=== PATIENT | female | born 1965 | race Hispanic/Latino ===

== ENCOUNTER 2018-04-19 19:17 | Emergency (ER) | payer OTHER ==
[~2018-04-19] VITALS: Ht 160 cm; Wt 89.8 kg
[~2018-04-19 19:17] MED LIST: DEMEROL 2525 MG/1 ML IV; LEVAQUIN500 MG PO; NEXIUM40 MG; PHENERGAN25 MG/1 ML IV; TYLENOL WITH C1 EACH PO
[2018-04-19] MEDS ORDERED: SODIUM CHLORIDE 0.9% 1000ML 1,000 ML IV STA (19:45)
[2018-04-19] MEDS ORDERED: PANTOPRAZOLE 40 MG 10ML VIAL IV STA (19:45)
[2018-04-19] MEDS ORDERED: KETOROLAC TROMETHAMINE 30 MG/ML VIAL IV STA (19:45)
[2018-04-19] MEDS ORDERED: ONDANSETRON HCL INJ 2 MG/ML VIAL IV STA ×2 (19:45→21:55)
[2018-04-19 20:09] LABS: BASOPHILS % 0.3 % (0.0-1.0); HEMATOCRIT 40.9 % (34.2-44.1); HEMOGLOBIN 13.8 g/dL (12.0-16.0); LYMPHOCYTES # (AUTO) 1.4 (1.0-3.2); LYMPHOCYTES % 11.8 % (18.0-39.1); MEAN CORPUSCULAR HEMOGLOBIN 30.6 pg (28-32); MEAN CORPUSCULAR HGB CONC 33.7 g/dL (31-35); MEAN CORPUSCULAR VOLUME 90.7 fL (81-99); MONOCYTES # (AUTO) 0.2 (0.2-0.8); MONOCYTES % 1.4 % (4.4-11.3); NEUTROPHILS # (AUTO) 10.1 (2.1-6.9); NEUTROPHILS % 85.2 % (38.7-80.0); PLATELET COUNT 381 x10e3/uL (140-360); RED BLOOD COUNT 4.51 x10e6/uL (3.6-5.1); RED CELL DISTRIBUTION WIDTH 14.2 % (11.7-14.4)
[2018-04-19 20:29] LABS: ALANINE AMINOTRANSFERASE 20 IU/L (0-55); ALBUMIN 3.9 g/dL (3.5-5.0); ALBUMIN/GLOBULIN RATIO 0.9 (0.8-2.0); ALKALINE PHOSPHATASE 72 IU/L (40-150); AMYLASE 38 U/L (25-125); ANION GAP 19.2 mmol/L (8-16); BLOOD UREA NITROGEN 16 mg/dL (7-26); BUN/CREATININE RATIO 19 (6-25); CALCIUM 9.8 mg/dL (8.4-10.2); CARBON DIOXIDE 18 mmol/L (22-29); CHLORIDE 107 mmol/L (98-107); CREATINE KINASE 65 IU/L (29-168); CREATININE, SERUM 0.84 mg/dL (0.57-1.11); EST GLOMERULAR FILTRATION RATE > 60 ML/MIN (60-); GLUCOSE 235 mg/dL (74-118); LIPASE 21 U/L (8-78); MAGNESIUM 2.1 MG/DL (1.3-2.1); POTASSIUM 4.2 mmol/L (3.5-5.1); SODIUM 140 mmol/L (136-145)
[2018-04-19 20:33] LABS: CLARITY,URINE CLEAR (CLEAR); COLOR,URINE YELLOW (YELLOW)
[2018-04-19 20:34] LABS: BILIRUBIN,URINE NEGATIVE (NEGATIVE); KETONES,URINE TRACE (NEGATIVE); LEUKOCYTE ESTERASE ,URINE NEGATIVE (NEGATIVE); NITRITE,URINE NEGATIVE (NEGATIVE); PROTEIN,URINE DIPSTICK NEGATIVE (NEGATIVE); URINE UROBILINOGEN 0.2 mg/dL (0.2 - 1)
[2018-04-19 20:36] LABS: MUCUS,URINE FEW (RARE)
[2018-04-19] MEDS ORDERED: MORPHINE SULFATE 2 MG/ML SYR IV STA (21:55)
[2018-04-19] MEDS ORDERED: CEFTRIAXONE SOD 1 GM VIAL IM ONE (22:00)
[2018-04-19] MEDS ORDERED: MORPHINE SULFATE INJ 4 MG/ML INJ ONE (22:15)
--- NOTE | 2018-04-19 22:41 | Diagnostic Imaging Report ---
EXAM: CT ABDOMEN/PELVIS WO DATE: 04/19/2018 7:45 PM INDICATION: Right upper quadrant/flank pain, stone protocol COMPARISON: 01/03/2017 TECHNIQUE: The abdomen and pelvis were scanned using a multidetector helical scanner. Coronal and sagittal reformations were obtained. Routine protocol performed. Note that technical tissues resulted in a delay in interpretation. IV Contrast: 0 ml Isovue 300/370 FINDINGS: Lack of IV contrast decreases sensitivity in evaluating abdominal and pelvic organs. LOWER THORAX: No consolidations LIVER/BILIARY: Stable subcentimeter low-density left hepatic lesion from 2016, likely benign/cyst. No ductal dilatation. GALLBLADDER: Surgically absent SPLEEN: Unremarkable PANCREAS: Unremarkable ADRENALS: No nodules KIDNEYS: Multiple bilateral renal cystic lesions are again noted, incompletely characterized without IV contrast. The largest of the left anterior kidney measures 2.7 cm with peripheral calcification/mineralization; calcification also seen of several additional renal lesions. A previous cystic lesion of the right interpolar kidney is now smaller (prior 1.6 cm) 1.3 cm high attenuation which may be related to involution/proteinaceous material. Left peripelvic cysts. No hydronephrosis. GI TRACT: No wall thickening or evidence of obstruction. Diverticulosis. Appendix is not seen. VESSELS: Incompletely assessed PERITONEUM/RETROPERITONEUM: No free air or fluid LYMPH NODES: No lymphadenopathy REPRODUCTIVE ORGANS/BLADDER: Hysterectomy. Unremarkable bladder. BONES: No suspicious bone lesions. IMPRESSION: 1. No evidence of obstructive uropathy or other explanation for symptoms. 2. Multiple bilateral renal cystic structures, several of which are complex and incompletely assessed without IV contrast. Signed by: Dr Lizeth Howard MD on 04/19/2018 10:37 PM
--- NOTE | 2018-04-19 22:43 | Diagnostic Imaging Report ---
CHEST 2 VIEWS, Technique: CHEST 2 VIEWS Comparison: 09/26/2016 Clinical history: \S\RUQ ABD PAIN TO FLANK CHEST (H/O CHOLECYSTECTOMY) \[id number] \S\2003 DISCUSSION: Stable cardiomediastinal silhouette. No consolidation or edema. No pleural effusion or pneumothorax. IMPRESSION: No acute abnormality Signed by: Dr Lizeth Howard MD on 04/19/2018 10:39 PM
== END 2018-04-19 23:27 | disposition home or self-care (01) ==
LOC: ER 19:17
DX: R10.11 Right upper quadrant pain (principal); R11.0 Nausea; N30.91 Cystitis, unspecified with hematuria
CPT/HCPCS: 36415; 71046; 74176; 80053; 81001; 82150; 82550; 82553; 83690; 83735; 84484; 85025; 87086; 93005; 99284; J0696; J1885; J2270; J2405; J7030

== ENCOUNTER → 2018-05-04 | Outpatient (CLI) | payer MEDICARE, OTHER ==
--- NOTE | 2018-05-04 11:34 | Diagnostic Imaging Report ---
PROCEDURE:US RETROPERITONEAL ( KIDNEY ). COMPARISON:Patients [facility], CT, CT ABDOMEN/PELVIS WO, 04/19/2018, 20:37. INDICATIONS:Renal Cyst TECHNIQUE: Wilder-scale and color sonographic images of the bilateral kidneys and bladder where obtained in transverse and longitudinal planes. FINDINGS: RIGHT KIDNEY: 12.6 cm, cortex 2.7 cm Cysts: Several cystic, anechoic lesions are noted: * 2.3 x 1.7 x 2.2 cm lesion in the mid lateral aspect. * 2.2 x 2.0 x 2.1 cm lesion in the superior to mid aspect. * 1.7 x 1.7 x 2.0 cm lesion in the superior to mid aspect Solid masses: None Stones: None Hydronephrosis: None Echogenicity: Normal LEFT KIDNEY: 12.2 cm, cortex 1.2 cm Cysts: Cystic, anechoic lesions within the left kidney: * 1.8 x 1.7 x 2.3 cm lesion in the superior, mid aspect. * 2.7 x 2.6 x 2.5 cm lesion in the mid medial aspect. Solid masses: None Stones: None Hydronephrosis: None. An irregular shaped cystic, anechoic structure in the mid left renal pelvis corresponds to the previously visualized left peripelvic cyst Echogenicity: Normal Bladder: No focal lesions. Bilateral ureteral jets are identified. CONCLUSION: 1. Normal bilateral renal size and echogenicity. No hydronephrosis or obstruction. No stones are identified. 2. Bilateral simple appearing cysts. Of note, a 1.3 cm hyperdense cyst noted on CT dated 04/19/2018 is not clearly seen in the current exam. 3. Left peripelvic cyst. Edward Brown M.D. Dictated by: Edward Brown M.D. on 05/04/2018 at 11:39 Electronically approved by: Edward Brown M.D. on 05/04/2018 at 11:39
== END ==
LOC: US 09:45
PROVIDERS: ATTEND Urology
DX: N28.1 Cyst of kidney, acquired (principal)
CPT/HCPCS: 76770

== ENCOUNTER 2018-09-19 13:32 | Emergency (ER) | payer MEDICARE, OTHER ==
[~2018-09-19] VITALS: Ht 162.6 cm; Wt 74.8 kg
--- OUTSIDE RECORDS SUMMARY | 2018-09-19 13:34 | XMS REPORT | Clinical Summary ---
Author Author [facility] Organization [facility] Address Unknown Phone Unavailable Care Team Providers Care Paper Folder Name Role Phone Kirit Connor DO PCP Allergies No Known Allergies Medications Not on file Active Problems Not on file Social History Date Tobacco Use Types Packs/Day Years Used Never Assessed Sex Assigned at Date Recorded Not on file Industry Job Start Date Occupation Not on file Not on file Not on file Travel End Travel History Travel Start No recent travel history available. Last Filed Vital Signs Not on file Plan of Treatment Health Maintenance Due Date Last Done Comments CERVICAL CANCER SCREENING 1986 BREAST CANCER SCREENING 2015 COLON CANCER SCREENING 2015 SHINGRIX VACCINE (1 of 2) 2015 INFLUENZA VACCINE 05/10/2018 HEPATITIS B VACCINES Aged Out No longer eligible based on patient's age to complete this topic IPV VACCINES Aged Out No longer eligible based on patient's age to complete this topic MENINGOCOCCAL VACCINE Aged Out No longer eligible based on patient's age to complete this topic Results Not on fileafter 09/18/2017 Insurance Payer Benefit Subscriber ID Type Phone Address Plan / Group [facility] x[facility] HMO COMPLETE [facility] (Home) [place] [address] Advance Directives Patient has advance care planning documents on file. For more information, nicole gaviria contact: Del Schwartz [address] [place] [address]
--- OUTSIDE RECORDS SUMMARY | 2018-09-19 13:34 | XMS REPORT ---
Author [facility] Address Unknown Phone Unavailable Care Team Providers Care Switch House Operator Name Role Phone ZOHAIB SCOTT Unavailable Unavailable SWEET, Rosalio LAIRD Unavailable Unavailable BAUTISTALM Unavailable Unavailable Problems This patient has no known problems. Allergies, Adverse Reactions, Alerts This patient has no known allergies or adverse reactions. Medications This patient has no known medications. Results Test Description Test Time Test Comments Text Results Atomic Results Result Comments US RENAL RETROPERITONEAL COMP 2018-05-04 11:39:00 [place] [address] Patient Name: HERNANDEZ VIERA I MR #: [id number] : 1965 Age/Sex: 52/F Req #: [id number] Adm Physician: Ordered by: ZOHAIB SCOTT MD Report #: [id number] Location: Room/Bed: Procedure: [id number] US/US RENAL RETROPERITONEAL COMP Exam Date: 05/04/18 Exam Time: 1004 REPORT STATUS: Signed PROCEDURE: US RETROPERITONEAL ( KIDNEY ). COMPARISON: Patients [facility], CT, CT ABDOMEN/PELVIS WO, 04/19/2018, 20:37. INDICATIONS: Renal Cyst TECHNIQUE: Wilder-scale and color sonographic images of the bilateral kidneys and bladder where obtained in transverse and longitudinal planes. FINDINGS: RIGHT KIDNEY: 12.6 cm, cortex 2.7 cm Cysts: Several cystic, anechoic lesions are noted: * 2.3 x 1.7 x 2.2 cm lesion in the mid lateral aspect. * 2.2 x 2.0 x 2.1 cm lesion in the superior to mid aspect. * 1.7 x 1.7 x 2.0 cm lesion in the superior to mid aspect Solid masses: None Stones: None Hydronephrosis: None Echogenicity: Normal LEFT KIDNEY: 12.2 cm, cortex 1.2 cm Cysts: Cystic, anechoic lesions within the left kidney: * 1.8 x 1.7 x 2.3 cm lesion in the superior, mid aspect. * 2.7 x 2.6 x 2.5 cm lesion in the mid medial aspect. Solid masses: None Stones: None Hydronephrosis: None. An irregular shaped cystic, anechoic structure in the mid left renal pelvis corresponds to the previously visualized left peripelvic cyst Echogenicity: Normal Bladder: No focal lesions. Bilateral ureteral jets are identified. CONCLUSION: 1. Normal bilateral renal size and echogenicity. No hydronephrosis or obstruction. No stones are identified. 2. Bilateral simple appearing cysts. Of note, a 1.3 cm hyperdense cyst noted on CT dated 04/19/2018 is not clearly seen in the current exam. 3. Left peripelvic cyst. Lorraine Brown M.D. Dictated by: Lorraine Brown M.D. on 05/04/2018 at 11:39 Electronically approved by: Lorraine Brown M.D. on 05/04/2018 at 11:39 Dictated By: LORRAINE BROWN MD 1139 Transcribed By: JANY on 05/04/18 1139 COPY TO: ZOHAIB SCOTT MD CHEST 2 VIEWS 2018-04-19 22:38:00 [place] [address] Patient Name: HERNANDEZ VIERA MR #: [id number] : 1965 Age/Sex: 52/F Req #: [id number] Adm Physician: Ordered by: BRADY GREEN MD Report #: [id number] Location: ER Room/Bed: Procedure: [id number] DX/CHEST 2 VIEWS Exam Date: 04/19/18 Exam Time: 2003 REPORT STATUS: Signed CHEST 2 VIEWS, Technique: CHEST 2 VIEWS Comparison: 09/26/2016 Clinical history: S RUQ ABD PAIN TO FLANK CHEST (H/O CHOLECYSTECTOMY) DISCUSSION: Stable cardiomediastinal silhouette. No consolidation or edema. No pleural effusion or pneumothorax. IMPRESSION: No acute abnormality Signed by: Dr Angela Howard MD on 04/19/2018 10:39 PM Dictated By: ANGELA HOWARD MD 38 Transcribed By: WILMAN on 04/19/182238 COPY TO: BRADY GREEN MD CT ABDOMEN/PELVIS WO 2018-04-19 22:26:00 [place] [address] Patient Name: HERNANDEZ VIERA MR #: [id number] : 1965 Age/Sex: 52/F Req #: [id number] Adm Physician: Ordered by: BRADY GREEN MD Report #: [id number] Location: ER Room/Bed: Procedure: [id number] CT/CT ABDOMEN/PELVIS WO Exam Date: 04/19/18 Exam Time: 2036 REPORT STATUS: Signed EXAM: CT ABDOMEN/PELVIS WO DATE: 04/19/2018 7:45 PM INDICATION: Right upper quadrant/flank pain, stone protocol COMPARISON: 01/03/2017 TECHNIQUE: The abdomen and pelvis were scanned using a multidetector helical scanner. Coronal and sagittal reformations were obtained. Routine protocol performed. Note that technical tissues resulted in a delay in interpretation. IV Contrast: 0 ml Isovue 300/370 FINDINGS: Lack of IV contrast decreases sensitivity in evaluating abdominal and pelvic organs. LOWER THORAX: No consolidations LIVER/BILIARY: Stable subcentimeter low-density left hepatic lesion from 2016, likely benign/cyst. No ductal dilatation. GALLBLADDER: Surgically absent SPLEEN: Unremarkable PANCREAS: Unremarkable ADRENALS: No nodules KIDNEYS: Multiple bilateral renal cystic lesions are again noted, incompletely characterized without IV contrast. The largest of the left anterior kidney measures 2.7 cm with peripheral calcification/mineralization; calcification also seen of several additional renal lesions. A previous cystic lesion of the right interpolar kidney is now smaller (prior 1.6 cm) 1.3 cm high attenuation which may be related to involution/proteinaceous material. Left peripelvic cysts. No hydronephrosis. GI TRACT: No wall thickening or evidence of obstruction. Diverticulosis. Appendix is not seen. VESSELS: Incompletely assessed PERITONE UM/RETROPERITONEUM: No free air or fluid LYMPH NODES: No lymphadenopathy REPRODUCTIVE ORGANS/BLADDER: Hysterectomy. Unremarkable bladder. BONES: No suspicious bone lesions. IMPRESSION: 1. No evidence of obstructive uropathy or other explanation for symptoms. 2. Multiple bilateral renal cystic structures, several of which are complex and incompletely assessed without IV contrast. Signed by: Dr Angela Howard MD on 04/19/2018 10:37 PM Dictated By: ANGELA HOWARD MD 36 Transcribed By: WILMAN on 04/19/182236 COPY TO: BRADY GREEN MD Culture, Blood Routine 2017-02-17 15:40:00 Specimen: BloodCollected: 02/12/2017 13:13 Status: Final Last Updated: 02/17/2017 15:40 (1) ER Bed 4 Culture Result (Final) (Final) No Growth After 5 Days Culture, Blood Routine 2017-02-17 15:40:00 Specimen: BloodCollected: 02/12/2017 13:13 Status: Final Last Updated: 02/17/2017 15:40 (1) ER Bed 4 Culture Result (Final) (Final) No Growth After 5 Days Culture, Urine 2017-02-14 08:19:00 Specimen: Urine, CC-MidstreamCollected: 02/12/2017 12:30 Status: Final Last Updated: 02/14/2017 08:19 (1) ER Bed 4 Culture Result (Final) (Final) 02/13/2017 No growth 24 hours 02/14/17 No growth 48 hours Lactic Acid Bld 2017-02-12 13:39:00 Lactic Acid, Bld (test code=LAC) 0.9 mmol/L 0.5-1.9 Comprehensive Metabolic [id number] 13:39:00* Test Item Value Reference Range Comments Sodium (test code=NA) 138 mmol/L 135-145 Potassium (test code=K) 3.6 mmol/L 3.5-5.1 Chloride (test code=CL) 100 mmol/L 98-105 Carbon Dioxide (test code=CO2) 26 mmol/L 22-29 Glucose (test code=GLU) 79 mg/dL 70-115 Blood Urea Nitrogen (test code=BUN) 10 mg/dL 6-20 Creatinine (test code=CREAT) 0.7 mg/dL 0.5-0.9 Calcium (test code=CA) 9.2 mg/dL 8.3-10.5 Prot Total (test code=TP) 7.1 g/dL 6.4-8.3 Albumin (test code=ALB) 4.4 g/dL 3.5-5.2 A/G Ratio (test code=AGRATIO) 1.6 Ratio Globulin (test code=GLOB) 2.7 2.9-3.1 Bili Total (test code=TBIL) 0.4 mg/dL 0.1-0.9 Alk Phos (test code=APHOS) 85 U/L 35-104 AST (test code=AST) 16 U/L 1-32 ALT (test code=ALT) 16 U/L 1-33 BUN/Creatinine Ratio (test code=BCRATIO) 14.3 Anion Gap (test code=AGAP) 12 mmol/L 7-16 Estimated GFR (test code=GFR) >60 mL/min/1.73m2 eGFR (estimated Glomerular Filtration Rate) is an estimated value,calculated from the patient's serum creatinine using the MDRD equation.It is NOT the patient's actual GFR. The eGFR provides a more clinicallyuseful measure of kidney disease than serum creatinine alone.This calculation takes sex and race into account, if the informationis provided. If the race is not provided, and the patient isAfrican-Nigerian, multiply by 1.212. If sex is not provided, and thepatient is female, multiply by 0.742. Results for patients <18 years ofage have not been validated by the MDRD study and should be interpretedwith caution.eGFR Result Interpretation:eGFR > or=60 is in the Normal RangeeGFR < 60 may mean kidney diseaseeGFR < 15 may mean kidney failureRanges recommended by the National Kidney Foundat ion,http://nkdep.nih.gov Partial Thromboplastin [id number] 13:25:00* Test Item Value Reference Range Comments aPTT (test code=PTT) 43.70 seconds 24.39-37.25 Prothrombin [id number] 13:25:00* Test Item Value Reference Range Comments PT (test code=PT) 12.10 seconds 9.78-13.35 INR (test code=INR) 1.06 Ratio 0.6-1.2 Urinalysis [id number] 13:15:00* Test Item Value Reference Range Comments Color (test code=COLOR) Yellow Yellow,Straw,Pl yellow Clarity (test code=CLAR) Clear Clear Specific [place] (test code=SPGR) 1.007 1.001-1.035 pH (test code=PH) 5.0 5.0-9.0 Ketone (test code=KET) Negative mg/dL Negative Glucose (test code=GLUCUR) Negative mg/dL Negative Protein (test code=PROT) Negative mg/dL Negative Bilirubin (test code=BILI) Negative mg/dL Negative Occult Blood (test code=UDOB) Moderate Negative Urobilinogen (test code=UROB) 0.2 mg/dL 0.2-1.0 Nitrite (test code=NIT) Negative Negative Leuk Esterase (test code=LEUK) Small Negative Ictotest (test code=ICTOTEST) Negative Negative,Confirmed Negative Clinitest (test code=CLINITEST) Not Indicated Micros Exam (test code=MEXAM) Indicated Epithelial Cells (test code=EPI) 0-2 /LPF 0-30 WBC, Urine (test code=UWBC) 0-2 /HPF 0-5 RBC, Urine (test code=URBC) 0-2 /HPF 0-5 Amorph Deposit (test code=AMORD) None /HPF Mucous, Urine (test code=UMUC) Trace /HPF Bacteria (test code=BACT) Few /HPF Yeast (test code=YEAST) None Seen /HPF Trichomonas (test code=TRICH) None Seen /HPF Casts (test code=CASTS) None /HPF Crystals (test code=JOSÉ MIGUEL) None /HPF CBC with [id number] 13:04:00* Test Item Value Reference Range Comments WBC (test code=WBC) 8.8 K/cumm 4.4-10.5 RBC (test code=RBC) 4.74 M/cumm 3.75-5.20 Hemoglobin (test code=HGB) 13.9 gm/dL 12.2-14.8 Hematocrit (test code=HCT) 42.3 % 36.5-44.4 MCV (test code=MCV) 89.2 fL 80-100 MCH (test code=MCH) 29.3 pg 27.0-32.5 MCHC (test code=MCHC) 32.9 g/dL 32.0-37.5 RDW (test code=RDW) 14.7 % 11.5-14.5 Platelet Count (test code=PLTCT) 375 K/cumm 140-440 MPV (test code=MPV) 7.7 fL Diff Method (test code=DIFFM) Auto Neutrophil (test code=NEUT) 51.0 % 36-70 Lymphocyte (test code=LYMPH) 37.2 % 12-44 Monocyte (test code=MONO) 8.5 % 0-11 Eosinophil (test code=EOS) 2.9 % 0-7 Basophil (test code=BASO) 0.4 % 0-2 Neutro Abs (test code=ANEUT) 4.5 K/cumm 1.6-7.4 Lymph Abs (test code=ALYMPH) 3.3 K/cumm 0.5-4.6 Bartholomew Abs (test code=AMONO) 0.7 K/cumm 0.0-1.2 Eos Abs (test code=AEOS) 0.25 K/cumm 0.00-0.74 Baso Abs (test code=ABASO) 0.0 K/cumm 0.00-0.21
[2018-09-19] MEDS ORDERED: HYDROCODONE/APAP 7.5MG-325MG 1 EA TAB PO NR ×2 (14:15→18:07)
[2018-09-19] MEDS ORDERED: KETOROLAC TROMETHAMINE 30 MG/ML VIAL IV ONE (14:45)
[2018-09-19] MEDS ORDERED: DICYCLOMINE HCL 20 MG/2 ML VIAL IM ONE ×2 (15:00→18:45)
--- NOTE | 2018-09-19 15:24 | Diagnostic Imaging Report ---
EXAMINATION: CT of the abdomen and pelvis without contrast. TECHNIQUE: Spiral CT images of the abdomen and pelvis were performed from the lung bases to the lesser trochanters. No intravenous contrast was given per renal stone protocol. Coronal and sagittal reformatted images were obtained. COMPARISON: CT abdomen and pelvis without contrast 04/19/2018 CLINICAL HISTORY:Right flank pain and hematuria DISCUSSION: ABSENCE OF INTRAVENOUS CONTRAST DECREASES SENSITIVITY FOR DETECTION OF FOCAL LESIONS AND VASCULAR PATHOLOGY. ABDOMEN/PELVIS: LOWER THORAX: Lung bases are clear. HEPATOBILIARY: No focal hepatic lesions. No intra or extrahepatic biliary ductal dilation. GALLBLADDER: Cholecystectomy clips. SPLEEN: No splenomegaly. PANCREAS: No focal masses or ductal dilatation. ADRENALS: No adrenal nodules. KIDNEYS/URETERS: Right: No renal or ureteral calculi. No hydronephrosis, hydroureter or evidence of obstruction. Stable hypodense/fluid density lesions, some of which contain punctate peripheral calcification, and which are incompletely characterized in this noncontrast study. Stable 1.2 cm high attenuation lesion in the lateral interpolar region, likely reflecting hemorrhagic or proteinaceous contents. No significant perinephric stranding. Left: No renal or ureteral calculi, hydronephrosis or obstruction. Stable fluid density structures in the left renal pelvis, likely reflecting peripelvic cysts. Stable fluid density lesions, likely representing simple cysts, which are incompletely characterized in this noncontrast study. No significant perinephric stranding. PELVIC ORGANS/BLADDER: Bladder is unremarkable. Uterus is absent. No adnexal masses. PERITONEUM/RETROPERITONEUM: No free air or fluid. LYMPH NODES: No intra-abdominal,retroperitoneal, pelvic or inguinal lymphadenopathy. VESSELS: Unremarkable for noncontrast exam. GI TRACT: No bowel dilation or evidence of obstruction. Extensive colonic diverticulosis, without CT evidence of diverticulitis. BONES AND SOFT TISSUES: No aggressive lytic lesions. Mild degenerative disc changes in the lumbosacral spine. IMPRESSION: 1. No renal or ureteral calculi, hydronephrosis or obstruction. 2. Stable noncontrast appearance of bilateral cystic lesions, some of which contain peripheral calcification, and are incompletely assessed in this exam without IV contrast. Signed by: Dr. Edward Brown M.D. on 09/19/2018 3:20 PM
[2018-09-19 18:09] LABS: BILIRUBIN,URINE NEGATIVE (NEGATIVE); CLARITY,URINE CLEAR (CLEAR); COLOR,URINE YELLOW (YELLOW); KETONES,URINE NEGATIVE (NEGATIVE); LEUKOCYTE ESTERASE ,URINE NEGATIVE (NEGATIVE); NITRITE,URINE NEGATIVE (NEGATIVE); PROTEIN,URINE DIPSTICK NEGATIVE (NEGATIVE); URINE UROBILINOGEN 0.2 mg/dL (0.2 - 1)
[2018-09-19 18:33] LABS: EPITHELIAL CELLS,URINE FEW /LPF
[2018-09-19 18:34] LABS: BACTERIA,URINE FEW /HPF
[2018-09-19 18:36] LABS: BASOPHILS # (AUTO) 0.1 (0.0-0.1); BASOPHILS % 0.5 % (0.0-1.0); HEMATOCRIT 42.7 % (34.2-44.1); HEMOGLOBIN 14.3 g/dL (12.0-16.0); LYMPHOCYTES # (AUTO) 0.8 (1.0-3.2); LYMPHOCYTES % 7.5 % (18.0-39.1); MEAN CORPUSCULAR HEMOGLOBIN 31.5 pg (28-32); MEAN CORPUSCULAR HGB CONC 33.5 g/dL (31-35); MEAN CORPUSCULAR VOLUME 94.1 fL (81-99); MONOCYTES # (AUTO) 0.3 (0.2-0.8); MONOCYTES % 2.5 % (4.4-11.3); NEUTROPHILS # (AUTO) 9.3 (2.1-6.9); NEUTROPHILS % 88.4 % (38.7-80.0); PLATELET COUNT 328 x10e3/uL (140-360); RED BLOOD COUNT 4.54 x10e6/uL (3.6-5.1); RED CELL DISTRIBUTION WIDTH 15.3 % (11.7-14.4)
[2018-09-19] MEDS ORDERED: KETOROLAC TROMETHAMINE 60 MG/2 ML VIAL IM ONE (18:45)
[2018-09-19 18:51] LABS: ALANINE AMINOTRANSFERASE 19 IU/L (0-55); ALBUMIN 3.9 g/dL (3.5-5.0); ALBUMIN/GLOBULIN RATIO 1.2 (0.8-2.0); ALKALINE PHOSPHATASE 41 IU/L (40-150); ANION GAP 17.5 mmol/L (8-16); BLOOD UREA NITROGEN 19 mg/dL (7-26); BUN/CREATININE RATIO 27 (6-25); CALCIUM 9.7 mg/dL (8.4-10.2); CARBON DIOXIDE 21 mmol/L (22-29); CHLORIDE 103 mmol/L (98-107); CREATININE, SERUM 0.71 mg/dL (0.57-1.11); EST GLOMERULAR FILTRATION RATE > 60 ML/MIN (60-); GLUCOSE 107 mg/dL (74-118); POTASSIUM 3.5 mmol/L (3.5-5.1); SODIUM 138 mmol/L (136-145)
== END 2018-09-19 21:12 | disposition home or self-care (01) ==
LOC: ER 13:32
DX: R10.31 Right lower quadrant pain (principal); R11.0 Nausea; M54.5 Low back pain; M79.7 Fibromyalgia; G89.29 Other chronic pain; I10 Essential (primary) hypertension
CPT/HCPCS: 36415; 74176; 80053; 81001; 82948; 83690; 85025; 96372; 99283; J0500; J1885

== ENCOUNTER 2018-09-21 12:03 | Emergency (ER) | payer MEDICARE, OTHER ==
[~2018-09-21] VITALS: Ht 162.6 cm; Wt 74.8 kg
--- OUTSIDE RECORDS SUMMARY | 2018-09-21 12:06 | XMS REPORT | Clinical Summary ---
Author Author [facility] Organization [facility] Address Unknown Phone Unavailable Care Team Providers Care Personal Lines Appraiser Name Role Phone Kirit Connor DO PCP [...] CANCER SCREENING 2015 COLON CANCER SCREENING 2015 SHINGLES VACCINES ( of 2015 2) INFLUENZA VACCINE 05/10/2018 HEPATITIS B VACCINES Aged Out No longer eligible based on patient's age to complete this topic IPV VACCINES Aged Out No longer eligible based on patient's age to complete this topic MENINGOCOCCAL VACCINE Aged Out No longer eligible based on patient's age to complete this topic Results Not on fileafter 09/20/2017 Insurance Payer Benefit Subscriber ID Type Phone Address Plan / Group [employer] MEDICARE [employer] DUAL xxxxxxxxx HMO COMPLETE [facility] (Home) [place] [address] Advance Directives Patient has advance care planning documents on file. For more information, nicole gaviria contact: Del Schwartz [address] [place] [address]
[2018-09-21 13:18] LABS: BILIRUBIN,URINE NEGATIVE (NEGATIVE); CLARITY,URINE SL CLOUDY (CLEAR); COLOR,URINE YELLOW (YELLOW); KETONES,URINE NEGATIVE (NEGATIVE); LEUKOCYTE ESTERASE ,URINE TRACE (NEGATIVE); NITRITE,URINE NEGATIVE (NEGATIVE); PROTEIN,URINE DIPSTICK NEGATIVE (NEGATIVE); URINE UROBILINOGEN 0.2 mg/dL (0.2 - 1)
[2018-09-21 13:19] LABS: PREGNANCY TEST, URINE NEGATIVE (NEGATIVE)
[2018-09-21 13:29] LABS: EPITHELIAL CELLS,URINE FEW /LPF; RENAL EPITHELIAL CELLS,URINE FEW; WBC,URINE (MAN) 0-5 /HPF (0-5)
[2018-09-21] MEDS ORDERED: ONDANSETRON HCL INJ 2 MG/ML VIAL IV STA (14:59)
[2018-09-21] MEDS ORDERED: MORPHINE SULFATE INJ 4 MG/ML INJ IV ONE (15:00)
[2018-09-21] MEDS ORDERED: SODIUM CHLORIDE 0.9% 1000ML 1,000 ML IV SCH (15:15)
[2018-09-21 15:25] LABS: BASOPHILS # (AUTO) 0.1 (0.0-0.1); BASOPHILS % 0.5 % (0.0-1.0); EOSINOPHILS # (AUTO) 0.1 (0.0-0.4); EOSINOPHILS % 0.6 % (0.0-6.0); HEMATOCRIT 44.5 % (34.2-44.1); HEMOGLOBIN 14.9 g/dL (12.0-16.0); LYMPHOCYTES # (AUTO) 3.2 (1.0-3.2); LYMPHOCYTES % 28.4 % (18.0-39.1); MEAN CORPUSCULAR HEMOGLOBIN 31.6 pg (28-32); MEAN CORPUSCULAR HGB CONC 33.5 g/dL (31-35); MEAN CORPUSCULAR VOLUME 94.5 fL (81-99); MONOCYTES # (AUTO) 0.9 (0.2-0.8); MONOCYTES % 8.1 % (4.4-11.3); NEUTROPHILS # (AUTO) 6.9 (2.1-6.9); NEUTROPHILS % 61.2 % (38.7-80.0); PLATELET COUNT 321 x10e3/uL (140-360); RED BLOOD COUNT 4.71 x10e6/uL (3.6-5.1); RED CELL DISTRIBUTION WIDTH 15.3 % (11.7-14.4)
[2018-09-21] MEDS ORDERED: KETOROLAC TROMETHAMINE 30 MG/ML VIAL IV ONE (15:30)
--- NOTE | 2018-09-21 15:45 | Diagnostic Imaging Report ---
Examination: Upright chest and abdominal radiographs COMPARISON: CT abdomen and pelvis without contrast 09/19/2018 INDICATION: Abdominal pain, CT abdomen and pelvis 2 days ago with negative findings DISCUSSION: Chest: The lungs are well-inflated and without focal consolidation, pleural effusion, or pneumothorax. Cardiomediastinal contour and pulmonary vasculature are within normal limits. No acute osseous abnormalities. Degenerative changes of the thoracic spine. No free air under the diaphragm. Abdomen: The bowel gas pattern shows no dilated, air-filled loops of bowel. Gas and fecal material is noted throughout the large bowel and rectum. No air-fluid levels on the upright radiograph. Calcified renal cystic lesions are faintly visualized. No abnormal abdominal mass effect or organomegaly. Regional skeletal structures are intact. Surgical clips project over the right upper quadrant of the abdomen, compatible with prior cholecystectomy IMPRESSION: 1. No acute cardiopulmonary abnormalities. 2. Nonobstructive bowel gas pattern. No pneumoperitoneum. Signed by: Dr. Dashawn Vitale M.D. on 09/21/2018 3:42 PM
[2018-09-21 15:58] LABS: ALANINE AMINOTRANSFERASE 18 IU/L (0-55); ALBUMIN 3.7 g/dL (3.5-5.0); ALBUMIN/GLOBULIN RATIO 1.2 (0.8-2.0); ALKALINE PHOSPHATASE 39 IU/L (40-150); BLOOD UREA NITROGEN 15 mg/dL (7-26); BUN/CREATININE RATIO 20 (6-25); CALCIUM 9.5 mg/dL (8.4-10.2); CARBON DIOXIDE 26 mmol/L (22-29); CHLORIDE 100 mmol/L (98-107); CREATININE, SERUM 0.74 mg/dL (0.57-1.11); EST GLOMERULAR FILTRATION RATE > 60 ML/MIN (60-); GLUCOSE 84 mg/dL (74-118); SODIUM 139 mmol/L (136-145)
[2018-09-21] MEDS ORDERED: DIPHENHYDRAMINE HCL INJ 50 MG/ML VIAL IV ONE (16:00)
[2018-09-21 18:55] VITALS: BP 133/87
== END 2018-09-21 18:54 | disposition home or self-care (01) ==
LOC: ER 12:03
DX: R10.11 Right upper quadrant pain (principal); M54.5 Low back pain; R11.0 Nausea; I10 Essential (primary) hypertension; E11.9 Type 2 diabetes mellitus without complications; E78.5 Hyperlipidemia, unspecified; M79.7 Fibromyalgia; K76.9 Liver disease, unspecified
CPT/HCPCS: 36415; 74022; 80053; 81001; 81025; 85025; 99284; J1200; J1885; J2270; J2405; J7030

== ENCOUNTER 2019-01-14 17:49 | Observation (INO) | payer MEDICARE, OTHER ==
[~2019-01-14] VITALS: Ht 162.6 cm; Wt 73.5 kg
--- OUTSIDE RECORDS SUMMARY | 2019-01-14 17:52 | XMS REPORT | Clinical Summary ---
Author Author [facility] Organization [facility] Address Unknown Phone Unavailable Care Team Providers Care Infantry Officer Name Role Phone Kirit Connor DO PCP [...] 2015 COLON CANCER SCREENING 2015 SHINGLES VACCINES (#1) 2015 INFLUENZA VACCINE 05/10/2019 Results Not on fileafter 01/13/2018 Insurance Payer Benefit Subscriber ID Type Phone Address Plan / Group [facility] MEDICARE [facility] DUAL xxxxxxxxx HMO COMPLETE [facility] (Home) [place] [address] Advance Directives Patient has advance care planning documents on file. For more information, nicole gaviria contact: Del Schwartz [address] [place] [address]
[2019-01-14] MEDS ORDERED: FENTANYL CITRATE/PF 100MCG/2 ML INJ IV ONE (18:30)
[2019-01-14] MEDS ORDERED: ASPIRIN 81 MG CHEW TAB PO ONE ×2 (18:30→21:15)
--- NOTE | 2019-01-14 20:20 | Diagnostic Imaging Report ---
EXAMINATION: CT scan of the chest without contrast. TECHNIQUE: Helical CT images of the chest were performed from the lung apices to the level of the adrenal glands. No intravenous contrast was administered . Coronal and sagittal reformatted images were obtained.Dose modulation, iterative reconstruction, and/or weight based adjustment of the mA/kV was utilized to reduce the radiation dose to as low as reasonably achievable. COMPARISON: None. CLINICAL HISTORY:Left arm pain DISCUSSION: ABSENCE OF INTRAVENOUS CONTRAST DECREASES SENSITIVITY FOR DETECTION OF FOCAL LESIONS AND VASCULAR PATHOLOGY. LINES/TUBES: None. LUNGS AND AIRWAYS: The lungs are clear. No pulmonary nodules, masses or consolidation. The airways are normal, without endobronchial lesions. PLEURA: No pneumothorax or pleural effusions. HEART AND MEDIASTINUM: The thyroid gland is normal. The heart and pericardium are within normal limits. LYMPH NODES: There is no mediastinal, hilar or axillary lymphadenopathy. ABDOMEN: Limited contrast-enhanced views of the upper abdomen show no abnormality within the visualized liver, spleen, pancreas, or kidneys. The adrenal glands are normal. BONES AND SOFT TISSUES: Partially visualized renal cysts. Cholecystectomy. Calcific tendinosis of the rotator cuffs. IMPRESSION: No acute CT finding. Signed by: Dr. López Higuera M.D. on 01/14/2019 8:16 PM
[2019-01-14] MEDS ORDERED: POTASSIUM CHLORIDE 20 MEQ TAB CR PO STA (20:30)
[2019-01-14] MEDS ORDERED: DEXAMETHASONE SOD PHOS 10 MG/1 ML VIAL IV ONE (20:45)
--- OUTSIDE RECORDS SUMMARY | 2019-01-14 21:34 | XMS REPORT | Clinical Summary ---
Author Author [facility] Organization [facility] Address Unknown Phone Unavailable Care Team Providers Care Salt Operator Name Role Phone Kirit Connor DO PCP [...] ID Type Phone Address Plan / Group [facility] MEDICARE [facility] DUAL xxxxxxxxx HMO COMPLETE [facility] (Home) [place] [address] Advance Directives Patient has advance care planning documents on file. For more information, nicole gaviria contact: Del Schwartz [address] [place] [address]
[2019-01-14 22:08] VITALS: BP 124/68
--- NOTE | 2019-01-14 22:10 | NUR ---
Arrived to unit via EMS. Assisted to bed. Oriented to environment and instructed to call for assistance or on the onset of pain or SOB. Call light within reach. Will continue to monitor.
[2019-01-14] MEDS ORDERED: HYDRALAZINE HCL 20 MG/ML VIAL IV PRN (22:15)
[2019-01-14] MEDS: HYDROCODONE/APAP 5MG-325MG TAB PO PRN (22:46)
[2019-01-14 23:00] VITALS: BP 124/68
[2019-01-14] MEDS ORDERED: MAGNESIUM OXID400 MG PO (23:18)
[2019-01-14] MEDS ORDERED: PRENATAL DHA200 MG PEG (23:18)
[2019-01-14] MEDS ORDERED: PREDNISONE10 MG PO (23:18)
[2019-01-14] MEDS ORDERED: TURMERIC1 GM PO (23:18)
[2019-01-14] MEDS ORDERED: SINGULAIR10 MG PO (23:18)
[2019-01-14] MEDS ORDERED: TRULICITY IJ (23:18)
[2019-01-14] MEDS ORDERED: POTASSIUM CHLO10 ME1 PO (23:18)
[2019-01-14] MEDS ORDERED: LEFLUNOMIDE20 MG (23:18)
[2019-01-14] MEDS ORDERED: FLAX SEED OIL1000 MG PO (23:18)
[2019-01-14] MEDS ORDERED: PRAVASTATIN SOD10 MG PO (23:18)
[2019-01-14] MEDS ORDERED: METFORMIN HCL500 M1 PO (23:18)
[2019-01-14] MEDS ORDERED: BIOTIN2500 MCG PO (23:18)
[2019-01-14] MEDS ORDERED: HYDROCHLOROTH12.5 M1 PO (23:18)
[2019-01-14] MEDS ORDERED: VITAMIN D1000 UNI1 PO (23:18)
[2019-01-15] VITALS: BP 117/74
--- NOTE | 2019-01-15 03:30 | NUR ---
Multiple attempt to draw trop lab this am, via IV and venous puncture. Another nurse to attempt.
[2019-01-15 04:00] VITALS: BP 119/71
[2019-01-15] MEDS: HYDROCODONE/APAP 5MG-325MG TAB PO PRN ×2 (05:15→10:50)
--- NOTE | 2019-01-15 06:11 | NUR ---
Spoke with Dr Márquez to notify of consult for Dr Mistry for chest pain and relapsing polychondritis. Will see patient
[2019-01-15 07:38] LABS: CHOL/HDL RATIO 2.4 (3.0-3.6)
[2019-01-15 07:45] VITALS: BP 117/82
[2019-01-15 07:55] LABS: CREATINE KINASE MB 0.4 ng/mL (0-5.0)
[2019-01-15] MEDS: ASPIRIN 81 MG ENTERIC COATED PO SCH (08:57)
[2019-01-15] MEDS: PREDNISONE 10 MG TAB PO SCH (10:30)
[2019-01-15] MEDS ORDERED: DEXTROSE 50% SYRINGE 50 ML IV PRN (10:30)
[2019-01-15 11:14] VITALS: BP 128/87
--- NOTE | 2019-01-15 12:40 | History and Physical ---
CHIEF COMPLAINT: Chest pain. HISTORY OF PRESENT ILLNESS: This is a 53-year-old female with multiple medical issues, of note relapsing polychondritis in which she takes and prednisone, seasonal allergies, hypertension, who comes in from an outside ED with complaints of substernal chest pain that began yesterday. 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 She reports the chest pain was substernal, pressure-like, that was episodic throughout the day yesterday. Denies any pain. She states that the chest pain did not radiate to her left shoulder or arm, just stayed center and pressure. She has never experienced anything like this before in the past. The patient was seen and evaluated at bedside on the medical floor. She is currently doing well. She is stable. Vital signs are stable when I evaluated her. REVIEW OF SYSTEMS: Pertinent positive: Chest pressure. Pertinent negatives: Denies any palpitation, nausea, vomiting, diarrhea, dysuria, hematuria, frequency, urgency, lightheadedness, dizziness, abdominal pain, headaches, shortness of breath, cough, congestion, fever, or any other complaints. The rest of 14-point review of systems have been reviewed with the patient and are negative. ALLERGIES: PENICILLIN BOVINE, CIPRO, CODEINE, HYDROCORTISONE, IODINE, SHELLFISH, VANCOMYCIN PAST MEDICAL HISTORY: She has relapsing polychondritis, hypertension, hyperlipidemia, seasonal allergies. PAST SURGICAL HISTORY: None. FAMILY HISTORY: Negative. SOCIAL HISTORY: No drugs. No alcohol. Does not smoke. Good social support. PHYSICAL EXAMINATION: VITAL SIGNS: Temperature is 97.0, pulse 68, respiratory rate is 19, blood pressure is 117/82, and pulse ox is 94% on room air. GENERAL: Not in acute distress. Alert and oriented x3. Cooperative on examination. HEENT: Head is normocephalic and atraumatic. Eyes; pupils are equal, round, and reactive to light bilaterally. Extraocular movements are intact bilaterally. Throat, no evidence of erythema or exudates in the posterior pharynx. Has poor dentition. NECK: Supple. Good range of motion. PULMONARY: Clear to auscultation bilaterally. No wheezing, no rales, no rhonchi, no crackles appreciated. CARDIOVASCULAR: Positive S1, S2. No murmurs, rubs, or gallops appreciated. ABDOMEN: Soft, nondistended, and nontender to palpation. Bowel sounds present. MUSCULOSKELETAL: Strength is 5/5 throughout. No evidence of any muscle deficits on examination. No weakness appreciated. NEUROLOGICAL: Cranial nerves 2 through 12 grossly intact. No evidence of any neurological deficits on exam. SKIN: Intact. Warm to touch. Good cap refill. PSYCHIATRIC: Normal affect and mood. EXTREMITIES: No edema. Good range of motion throughout. LABORATORY DATA: Lab findings show CBC was normal, chemistry was normal. CK 37, troponin 0.005. Triglycerides 58, cholesterol 194, LDL 101, and HDL 81. MICROBIOLOGY: None. IMAGING STUDIES: CT of the chest without contrast was performed, shows no acute CT findings. CT chest without contrast shows no acute findings. IMPRESSION: 1. Chest pain, likely atypical in nature. 2. Relapsing polychondritis. 3. Type 2 diabetes. 4. Hyperlipidemia. PLAN: At this time, cardiac enzymes were performed and found to be negative. Cardiology was consulted. Scheduled for cardiac stress test for today. Continue with cardioprotective medications including aspirin and statin. Continue with insulin sliding scale for underlying diabetes. Resume prednisone and for her polychondritis. We will put her on Lovenox for DVT prophylaxis, get a.m. labs. Encourage out of bed. She will be on oxygen at night as well. The patient will likely be discharged home tomorrow once cardiac stress test comes back to be negative and cleared by Cardiology. The patient will stay overnight. MD SALEEM Dan/ALEJANDROL /[id number]
--- NOTE | 2019-01-15 13:21 | Consultation ---
DATE OF CONSULTATION: 01/15/2019 Cardiology Consultation REASON FOR CONSULTATION: Chest pain. HISTORY OF PRESENT ILLNESS: This is a 53-year-old woman with history of hypertension, hyperlipidemia, diabetes mellitus, relapsing polychondritis, and possible myocardial infarction, who presents with complaints of chest pain. The patient reports she began having chest pain on Tuesday. She describes it as a crushing sensation that came and went. It would last a few seconds at a time, but was 8/10 in severity when present. It was associated with shortness of breath and nausea. She did not notice any aggravating or alleviating factors. There was no association with activity. The pain did not radiate. She otherwise denies edema, orthopnea, or PND. REVIEW OF SYSTEMS: Negative except as per HPI. PAST MEDICAL HISTORY: 1. Hypertension. 2. Hyperlipidemia. 3. Diabetes mellitus. 4. Relapsing polychondritis. 5. Questionable history of myocardial infarction. PAST SURGICAL HISTORY: 1. Appendectomy. 2. Tonsillectomy. 3. Cholecystectomy. 4. Hysterectomy. ALLERGIES: PLEASE SEE EMR. MEDICATIONS: Please see medication list. SOCIAL HISTORY: Denies tobacco, alcohol, or illicit drugs. FAMILY HISTORY: Unknown. PHYSICAL EXAMINATION: VITAL SIGNS: Temperature 97.9 degrees, pulse 68, respiratory rate 19, blood pressure 117/82, and oxygen saturation 94% on room air. GENERAL: Well-developed, well-nourished woman, in no acute distress, awake and alert. HEENT: Normocephalic, atraumatic. Pupils equal. No scleral icterus. NECK: Supple. No thyromegaly or cervical lymphadenopathy. No carotid bruits. LUNGS: Clear to auscultation bilaterally. No wheezes or crackles. CARDIOVASCULAR: Normal rate, regular rhythm. No murmur. Normal S1, S2. ABDOMEN: Soft, nontender. EXTREMITIES: No edema. NEUROLOGIC: Nonfocal exam. LABS: Troponin 0.005. Cholesterol 194, LDL 101, HDL 81, triglycerides 58. CT, no acute CT findings. Telemetry, normal sinus rhythm. IMPRESSION: 1. Chest pain. 2. Hypertension. 3. Hyperlipidemia. 4. Diabetes mellitus. 5. Relapsing polychondritis. 6. Reported history of myocardial infarction. RECOMMENDATIONS: Continue trending cardiac markers to rule out myocardial infarction. Obtain echocardiogram. Blood pressure is controlled. Continue home cardiac medications for now. Further recommendations pending test results. Thank you for this consult. We will continue to follow. MD DESTINY Feldman/CARLOS /[id number]
[2019-01-15] MEDS ORDERED: REGADENOSON 0.4 MG/5 ML SYR IV ONE (13:47)
[2019-01-15 15:39] VITALS: BP 127/78
[2019-01-15] MEDS ORDERED: ENOXAPARIN SOD INJ 40 MG/0.4 ML SYR SC SCH (17:00)
[2019-01-15 17:26] LABS: CREATINE KINASE 33 IU/L (29-168)
--- NOTE | 2019-01-15 19:00 | NUR ---
Report and rounds completed. Patient in bed with visitors at bedside. Call light within reach. Will continue to monitor.
--- NOTE | 2019-01-15 19:30 | NUR ---
Dr Márquez called and reported patient is clear from cardio standpoint. Dr Mejía notified via phone. VQ scan to be done in am 01/16/19.
[2019-01-15 20:00] VITALS: BP 105/58
[2019-01-15] MEDS ORDERED: MONTELUKAST SODIUM 10 MG TAB PO SCH (21:00)
--- NOTE | 2019-01-15 22:43 | Myoview Stress Test ---
DATE OF STUDY: 01/15/2019 11:12:00 Stress Test - Treadmill ONLY PROCEDURE TITLE: Rest/stress single isotope SPECT imaging with pharmacologic stress and gated SPECT imaging. INDICATION: Chest pain. PROCEDURE: Pharmacologic stress testing was performed with regadenoson per protocol. The heart rate was 72 beats per minute at rest and increased to 136 beats per minute during the regadenoson infusion. The rest blood pressure was 123/77 and decreased to 119/83 mmHg, which is a normal response. The resting electrocardiogram demonstrated normal sinus rhythm. There were no ST-segment changes suggestive of myocardial ischemia. Myocardial perfusion imaging was performed at rest following the injection of 11 mCi of tetrofosmin. At peak pharmacologic effect, the patient was injected with 33 mCi of tetrofosmin. Gated post-stress tomographic imaging was performed. FINDINGS: The overall quality of the study is good. Left ventricular cavity is noted to be of normal size on the rest and stress studies. SPECT images demonstrate homogeneous tracer distribution throughout the myocardium. Gated SPECT imaging reveals normal myocardial thickening and wall motion. The left ventricular ejection fraction is calculated to be 68%. IMPRESSION: Myocardial perfusion imaging is normal. Overall, left ventricular systolic function was normal without regional wall motion abnormalities. ACCESSION NUMBER: [id number]. Adrienne Márquez MD ABS/MODL /[id number]
[2019-01-16] VITALS: BP 114/68
[2019-01-16 04:52] VITALS: BP 108/64
[2019-01-16 05:22] LABS: BASOPHILS # (AUTO) 0.1 (0.0-0.1); BASOPHILS % 0.6 % (0.0-1.0); EOSINOPHILS % 0.3 % (0.0-6.0); HEMATOCRIT 35.1 % (34.2-44.1); HEMOGLOBIN 11.4 g/dL (12.0-16.0); LYMPHOCYTES # (AUTO) 3.9 (1.0-3.2); LYMPHOCYTES % 37.2 % (18.0-39.1); MEAN CORPUSCULAR HEMOGLOBIN 31.4 pg (28-32); MEAN CORPUSCULAR HGB CONC 32.5 g/dL (31-35); MEAN CORPUSCULAR VOLUME 96.7 fL (81-99); MONOCYTES # (AUTO) 0.9 (0.2-0.8); MONOCYTES % 8.8 % (4.4-11.3); NEUTROPHILS # (AUTO) 5.5 (2.1-6.9); NEUTROPHILS % 52.5 % (38.7-80.0); PLATELET COUNT 313 x10e3/uL (140-360); RED BLOOD COUNT 3.63 x10e6/uL (3.6-5.1); RED CELL DISTRIBUTION WIDTH 14.2 % (11.7-14.4)
[2019-01-16 05:38] LABS: ANION GAP 8.5 mmol/L (8-16); BLOOD UREA NITROGEN 13 mg/dL (7-26); BUN/CREATININE RATIO 19 (6-25); CALCIUM 8.4 mg/dL (8.4-10.2); CARBON DIOXIDE 26 mmol/L (22-29); CHLORIDE 108 mmol/L (98-107); CREATININE, SERUM 0.67 mg/dL (0.57-1.11); EST GLOMERULAR FILTRATION RATE > 60 ML/MIN (60-); GLUCOSE 90 mg/dL (74-118); POTASSIUM 3.5 mmol/L (3.5-5.1); SODIUM 139 mmol/L (136-145)
[2019-01-16 07:44] VITALS: BP 115/70
[2019-01-16] MEDS: PREDNISONE 10 MG TAB PO SCH (09:11)
[2019-01-16] MEDS: ASPIRIN 81 MG ENTERIC COATED PO SCH (09:11)
[2019-01-16 11:18] VITALS: BP 105/58
--- NOTE | 2019-01-16 11:42 | Progress Note ---
DATE: 01/16/2019 Cardiology Progress Note SUBJECTIVE: The patient denies chest pain or shortness of breath. OBJECTIVE: VITAL SIGNS: Temperature 98.9 degrees, pulse 60, respiratory rate 19, blood pressure 115/70, oxygen saturation 96%. GENERAL: Awake, alert, in no acute distress. LUNGS: Clear to auscultation bilaterally. No wheezes or crackles. CARDIOVASCULAR: Normal rate, regular rhythm. No murmur. Normal S1, S2. ABDOMEN: Soft, nontender. EXTREMITIES: No edema. CARDIAC MEDICATIONS: Aspirin 81 mg p.o. daily. LABORATORY DATA: WBC 10.45, hemoglobin 11.4, hematocrit 35.1, platelets 313. Sodium 139, potassium 3.5, chloride 108, CO2 of 26, BUN 13, creatinine 0.67. TELEMETRY: Normal sinus rhythm. IMPRESSION: 1. Chest pain. 2. Hypertension. 3. Hyperlipidemia. 4. Diabetes mellitus. 5. Relapsing polychondritis. 6. Reported history of myocardial infarction. RECOMMENDATIONS: No evidence of myocardial infarction on serial cardiac biomarkers. Nuclear stress test was without evidence of ischemia. Blood pressure has been controlled. Continue home cardiac medications. V/Q scan to rule out pulmonary embolism is pending. No further cardiac evaluation is indicated at this time. Thank you for this consult. We will continue to follow. Adrienne Márquez MD ABS/MODL /[id number]
[2019-01-16] MEDS ORDERED: ASPIRIN EC81 MG PO (11:51)
--- NOTE | 2019-01-16 14:50 | NUR ---
Visit made by the Spiritual Care Department Pastoral Visitor, Laurence Roa. PV provided pastoral presence, hospitality, prayer, and supportive listening. Pastoral Visitor informed pt/family of the scope of [employer] and availability. MEGHA RYAN Stranding Machine Operator Helper Spiritual Care Department O: [phone] Pager: [phone] ([phone] calling from)
--- NOTE | 2019-01-16 15:43 | Diagnostic Imaging Report ---
Ventilation/perfusion lung scan Clinical Information: 53 F with chest pain and intermittent SOB Comparison: CT chest without contrast 01/14/2019 Discussion: Xenon-133 gas 10.5 mCi was administered via inhalation. Dynamic images of the lungs in the posterior projection were obtained through single breath and washout phases. Distribution of tracer activity is irregular throughout the lungs. There are no segmental ventilatory defects. Washout of tracer is diffusely delayed with no air trapping. Perfusion images of the lungs were obtained in multiple projections following intravenous administration of approximately 5 mCi of Tc-99m MAA. Distribution of tracer appears physiologic throughout the lungs. The contours of the lungs are well demarcated. There are no segmental perfusion defects of any size. The cardiomediastinal silhouette is unremarkable. Impression: Scan findings represent a VERY LOW probability for acute pulmonary embolic disease based on the PIOPED II criteria. Scan evidence of obstructive lung disease. Signed by: Dr. Mónica Pickard M.D. on 01/16/2019 3:40 PM
[2019-01-16 15:47] VITALS: BP 116/82
--- NOTE | 2019-01-18 03:43 | Discharge Summary ---
FINAL DISCHARGE DIAGNOSES: 1. Atypical chest pain. 2. Relapsing polychondritis. 3. Type 2 diabetes. 4. Hyperlipidemia. CONSULTANTS: Cardiology. PHYSICAL EXAMINATION: VITAL SIGNS: Temperature 98.1, pulse 60, respiratory rate 17, blood pressure 116/82, and pulse ox 95% on room air. LAB FINDINGS: Show white count 10.4, hemoglobin 11.4, hematocrit is 35, and platelets of 313. Sodium 139, potassium 3.5, chloride 108, bicarb 26. Anion gap of 8. BUN 13, creatinine 0.67, glucose 90, calcium 8.4. Troponins are all negative. LDL 101. MICROBIOLOGY: None. IMAGING STUDIES: V/Q scan impression shows finding representing very low probability for acute pulmonary embolism. Cardiac stress test was negative. 2D echo was found within normal range. CT without contrast shows no acute CT findings. HOSPITAL COURSE: This is a 53-year-old female, who came in from an outside ER with complaints of chest pain. The patient was admitted under observation and Cardiology was consulted. Cardiac enzymes were found to be negative, cardiac stress test was negative. 2D echo was found to be normal and no longer on cardiac telemetry. The patient's chest pain all resolved. It was felt to be like her chest pain seemed to be due secondary to her polychondritis. The patient also had a V/Q scan that showed low probability of pulmonary embolism. On discharge, patient has been cleared by Cardiology. The patient was back to normal baseline with no other complaints. The patient had no chest pain prior to being discharged home. On the day of discharge, vital signs stable, labs are stable. The patient was seen and evaluated, examined thoroughly on the day of discharge and no other complaints. The patient verbalized understanding and agreed to plan of care to followup appointment as an outpatient with primary care physician in 1 week time and Cardiology in 2 weeks' time. MEDICATIONS: See med reconciliation form. DISPOSITION: Home. CONDITION: Stable. DIET: Heart healthy. In the event of any worsening symptoms, the patient was advised to come back to the ED for further evaluation. Discharge summary took greater than 35 minutes. MD SALEEM Dan/CARLOS /[id number]
== END 2019-01-16 17:02 | disposition home or self-care (01) ==
LOC: FSED 17:49 → ERHOLD 18:28 → INTOOBSV 18:28 → IMCU 22:08
PROVIDERS: ADMIT Internal Medicine; ATTEND Internal Medicine
DX: R07.89 Other chest pain (principal); M94.1 Relapsing polychondritis; I10 Essential (primary) hypertension; J30.2 Other seasonal allergic rhinitis; Z88.8 Allergy status to other drugs, medicaments and biological substances; Z88.1 Allergy status to other antibiotic agents; Z91.041 Radiographic dye allergy status; Z88.5 Allergy status to narcotic agent; Z88.0 Allergy status to penicillin; Z91.013 Allergy to seafood; E11.9 Type 2 diabetes mellitus without complications; E78.5 Hyperlipidemia, unspecified; Z91.018 Allergy to other foods; Z79.82 Long term (current) use of aspirin; Z79.84 Long term (current) use of oral hypoglycemic drugs
CPT/HCPCS: 36415 ×2; 71250; 78452; 78582; 80048 ×2; 80061; 80076; 81003; 82550; 82553 ×2; 82948 ×2; 84484 ×2; 85025 ×2; 85610; 93017; 93306; 99284; A9502; A9540; A9558; G0378 ×3; J1100; J1650; J2785; J7512

== ENCOUNTER 2019-04-15 15:18 | Emergency (ER) | payer MEDICARE, OTHER ==
[~2019-04-15] VITALS: Ht 162.6 cm; Wt 71.7 kg
[~2019-04-15 15:18] MED LIST changes: +ASPIRIN EC81 MG PO; +BIOTIN2500 MCG PO; +FLAX SEED OIL1000 MG PO; +HYDROCHLOROTH12.5 M1 PO; +LEFLUNOMIDE20 MG; +MAGNESIUM OXID400 MG PO; +METFORMIN HCL500 M1 PO; +POTASSIUM CHLO10 ME1 PO; +PRAVASTATIN SOD10 MG PO; +PREDNISONE10 MG PO; +PRENATAL DHA200 MG PEG; +SINGULAIR10 MG PO; +TRULICITY IJ; +TURMERIC1 GM PO; +VITAMIN D1000 UNI1 PO
--- OUTSIDE RECORDS SUMMARY | 2019-04-15 15:21 | XMS REPORT | Continuity of Care Document ---
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 [employer] [place] Information Exchange Unavailable Unavailable Problems No Data Provided for This Section Medications Medication Details Route Status Patient Instructions Ordering Provider Order Date Source Acetaminophen With Codeine (Tylenol With Codeine #3 Tablet) 1 Each Tablet Every 4 Hours for Pain Active [facility] Esomeprazole Magnesium (Nexium) 40 Mg Capsule.dr Daily as needed for Indigestion Active PROTONIX THERAPEUTIC SUBSTITUTE FOR NEXIUM PER [facility] Levofloxacin (Levaquin) 500 Mg Tablet Daily Active [facility] Meperidine Hcl/Pf (Demerol 25 Mg/Ml Syringe) 25 Mg/1 Ml Disp.syrin Once as needed for Pain Active [facility] Promethazine Hcl (Phenergan) 25 Mg/1 Ml Ampul Once as needed for Nausea Active [facility] Allergies, Adverse Reactions, Alerts Substance Category Reaction Severity Reaction type Status Date Reported Comments Source Iodine Unknown Allergy to Substance Active 01/03/2017 [facility] beef derived (bovine) Unknown Allergy to Substance Active 01/03/2017 [facility] shellfish derived Severe Propensity to adverse reactions Active 01/03/2017 [facility] Soy Unknown Allergy to Substance Active 01/03/2017 [facility] penicillin Unknown Allergy to Substance Active 01/03/2017 [facility] Penicillin Mild Allergy to Substance Active 04/19/2018 [facility] Codeine Mild Allergy to Substance Active 04/19/2018 [facility] Hydrocortisone Mild Allergy to Substance Active 04/19/2018 [facility] Ciprofloxacin Mild Allergy to Substance Active 04/19/2018 [facility] Vancomycin Mild Allergy to Substance Active 04/19/2018 [facility] Immunizations No Data Provided for This Section Results Order Name Results Value Reference Range Date Interpretation Comments Source Automated blood basophil count (count/volume) Automated blood basophil count (count/volume) 0.0 0.0 - 0.1 04/19/2018 [facility] Automated blood basophil count as percentage of total leukocytes Automated blood basophil count as percentage of total leukocytes 0.3 0.0 - 1.0 04/19/2018 [facility] Automated blood eosinophil count Automated blood eosinophil count 0.0 0.0 - 0.4 04/19/2018 [facility] Automated blood eosinophil count as percentage of total leukocytes Automated blood eosinophil count as percentage of total leukocytes 0.0 0.0 - 6.0 04/19/2018 [facility] Automated blood hematocrit (volume fraction) Automated blood hematocrit (volume fraction) 40.9 34.2 - 44.1 04/19/2018 [facility] Automated blood lymphocyte count as percentage ot total leukocytes Automated blood lymphocyte count as percentage ot total leukocytes 11.8 18.0 - 39.1 04/19/2018 [facility] Automated blood monocyte count as percentage of total leukocytes Automated blood monocyte count as percentage of total leukocytes 1.4 4.4 - 11.3 04/19/2018 [facility] Automated blood neutrophil count Automated blood neutrophil count 10.1 2.1 - 6.9 04/19/2018 [facility] Automated blood platelet count (count/volume) Automated blood platelet count (count/volume) 381 140 - 360 04/19/2018 [facility] Automated blood segmented neutrophil count as percentage of total leukocytes Automated blood segmented neutrophil count as percentage of total leukocytes 85.2 38.7 - 80.0 04/19/2018 [facility] Automated erythrocyte mean corpuscular hemoglobin (mass per erythrocyte) Automated erythrocyte mean corpuscular hemoglobin (mass per erythrocyte) 30.6 28 - 32 04/19/2018 [facility] Automated erythrocyte mean corpuscular hemoglobin concentration measurement (mass/volume) Automated erythrocyte mean corpuscular hemoglobin concentration measurement (mass/volume) 33.7 31 - 35 04/19/2018 [facility] Automated erythrocyte mean corpuscular volume Automated erythrocyte mean corpuscular volume 90.7 81 - 99 04/19/2018 [facility] Blood erythrocytes automated count (number/volume) Blood erythrocytes automated count (number/volume) 4.51 3.6 - 5.1 04/19/2018 [facility] Blood hemoglobin measurement (moles/volume) Blood hemoglobin measurement (moles/volume) 13.8 12.0 - 16.0 04/19/2018 [facility] Blood leukocytes automated count (number/volume) Blood leukocytes automated count (number/volume) 11.83 4.8 - 10.8 04/19/2018 [facility] Blood lymphocytes count (number/volume) Blood lymphocytes count (number/volume) 1.4 1.0 - 3.2 04/19/2018 [facility] Blood monocytes automated count (number/volume) Blood monocytes automated count (number/volume) 0.2 0.2 - 0.8 04/19/2018 [facility] Estimated glomerular filtration rate (GFR) determination Estimated glomerular filtration rate (GFR) determination >60 60 04/19/2018 [facility] Glucose measurement Glucose measurement 235 74 - 118 04/19/2018 [facility] Plasma globulin measurement (mass/volume) Plasma globulin measurement (mass/volume) 4.5 2.3 - 3.5 04/19/2018 [facility] Serum or plasma alanine aminotransferase measurement (enzymatic activity/volume) Serum or plasma alanine aminotransferase measurement (enzymatic activity/volume) 20 0 - 55 04/19/2018 [facility] Serum or plasma albumin measurement (mass/volume) Serum or plasma albumin measurement (mass/volume) 3.9 3.5 - 5.0 04/19/2018 [facility] Serum or plasma albumin/globulin mass ratio Serum or plasma albumin/globulin mass ratio 0.9 0.8 - 2.0 04/19/2018 [facility] Serum or plasma alkaline phosphatase measurement (enzymatic activity/volume) Serum or plasma alkaline phosphatase measurement (enzymatic activity/volume) 72 40 - 150 04/19/2018 [facility] Serum or plasma amylase measurement (enzymatic activity/volume) Serum or plasma amylase measurement (enzymatic activity/volume) 38 25 - 125 04/19/2018 [facility] Serum or plasma anion gap Serum or plasma anion gap 19.2 8 - 16 04/19/2018 [facility] Serum or plasma calcium measurement (mass/volume) Serum or plasma calcium measurement (mass/volume) 9.8 8.4 - 10.2 04/19/2018 [facility] Serum or plasma carbon dioxide, total measurement (moles/volume) Serum or plasma carbon dioxide, total measurement (moles/volume) 18 22 - 29 04/19/2018 [facility] Serum or plasma chloride measurement (moles/volume) Serum or plasma chloride measurement (moles/volume) 107 98 - 107 04/19/2018 [facility] Serum or plasma creatine kinase MB measurement (mass/volume) Serum or plasma creatine kinase MB measurement (mass/volume) 0.40 0 - 5.0 04/19/2018 [facility] Serum or plasma creatine kinase measurement (enzymatic activity/volume) Serum or plasma creatine kinase measurement (enzymatic activity/volume) 65 29 - 168 04/19/2018 [facility] Serum or plasma creatinine measurement (mass/volume) Serum or plasma creatinine measurement (mass/volume) 0.84 0.57 - 1.11 04/19/2018 [facility] Serum or plasma lipase measurement (enzymatic activity/volume) Serum or plasma lipase measurement (enzymatic activity/volume) 21 8 - 78 04/19/2018 [facility] Serum or plasma magnesium measurement (mass/volume) Serum or plasma magnesium measurement (mass/volume) 2.1 1.3 - 2.1 04/19/2018 [facility] Serum or plasma potassium measurement (moles/volume) Serum or plasma potassium measurement (moles/volume) 4.2 3.5 - 5.1 04/19/2018 [facility] Serum or plasma protein measurement (mass/volume) Serum or plasma protein measurement (mass/volume) 8.4 6.5 - 8.1 04/19/2018 [facility] Serum or plasma sodium measurement (moles/volume) Serum or plasma sodium measurement (moles/volume) 140 136 - 145 04/19/2018 [facility] Serum or plasma total bilirubin measurement (mass/volume) Serum or plasma total bilirubin measurement (mass/volume) 0.3 0.2 - 1.2 04/19/2018 [facility] Serum or plasma urea nitrogen measurement (mass/volume) Serum or plasma urea nitrogen measurement (mass/volume) 16 7 - 26 04/19/2018 [facility] Serum or plasma urea nitrogen/creatinine mass ratio Serum or plasma urea nitrogen/creatinine mass ratio 19 6 - 25 04/19/2018 [facility] Troponin I measurement by highly sensitive enzyme immunoassay Troponin I measurement by highly sensitive enzyme immunoassay 0.003 0 - 0.300 04/19/2018 [facility] Red Cell Distribution Width 14.2 11.7 - 14.4 04/19/2018 [facility] IM GRANULOCYTES % 1.3 0.0 - 1.0 04/19/2018 [facility] Absolute Immature Granulocyte (auto 0.15 0 - 0.1 04/19/2018 [facility] Aspartate Amino Transf (AST/SGOT) 16 5 - 34 04/19/2018 [facility] Automated urine sediment leukocyte count by microscopy (number/high power field) Automated urine sediment leukocyte count by microscopy (number/high power field) <10 0 - 5 04/19/2018 [facility] Bacteria detection in urine sediment by light microscopy Bacteria detection in urine sediment by light microscopy NONE NONE 04/19/2018 [facility] Epithelial cells detection in urine sediment by light microscopy Epithelial cells detection in urine sediment by light microscopy NONE NONE 04/19/2018 [facility] Erythrocytes detection in urine sediment by light microscopy Erythrocytes detection in urine sediment by light microscopy <10 0 - 5 04/19/2018 [facility] Mucus detection in urine sediment by light microscopy Mucus detection in urine sediment by light microscopy FEW RARE 04/19/2018 [facility] Specific gravity of Urine by Test strip Specific gravity of Urine by Test strip 1.015 1.010 - 1.025 04/19/2018 [facility] Urine clarity Urine clarity CLEAR CLEAR 04/19/2018 [facility] Urine color determination Urine color determination YELLOW YELLOW 04/19/2018 [facility] Urine erythrocytes detection Urine erythrocytes detection 2+ NEGATIVE 04/19/2018 [facility] Urine glucose detection Urine glucose detection 3+ NEGATIVE 04/19/2018 [facility] Urine ketones detection by automated test strip Urine ketones detection by automated test strip TRACE NEGATIVE 04/19/2018 [facility] Urine leukocyte esterase detection by dipstick Urine leukocyte esterase detection by dipstick NEGATIVE NEGATIVE 04/19/2018 [facility] Urine nitrite detection Urine nitrite detection NEGATIVE NEGATIVE 04/19/2018 [facility] Urine pH measurement by automated test strip Urine pH measurement by automated test strip 6 5 - 7 04/19/2018 [facility] Urine protein measurement by test strip (mass/volume) Urine protein measurement by test strip (mass/volume) NEGATIVE NEGATIVE 04/19/2018 [facility] Urine total bilirubin measurement (mass/volume) Urine total bilirubin measurement (mass/volume) NEGATIVE NEGATIVE 04/19/2018 [facility] Urine urobilinogen measurement by test strip (mass/volume) Urine urobilinogen measurement by test strip (mass/volume) 0.2 0.2 - 1 04/19/2018 [facility] Pathology Reports No Data Provided for This Section Diagnostic Reports No Data Provided for This Section Consultation Notes No Data Provided for This Section Discharge Summaries No Data Provided for This Section History and Physicals No Data Provided for This Section Vital Signs No Data Provided for This Section Encounters Location Location Details Encounter Type Encounter Number Reason For Visit Attending Provider ADM Date DC Date Status Source Departed Emergency Room [id number] BRADY GREEN MD 04/19/2018 04/19/2018 [facility] Procedures Procedure Code Date Perfomer Comments Source CT of abdomen and pelvis without contrast [id number] 04/19/2018 [facility] X-ray of chest, two views [id number] 04/19/2018 [facility] Assessment and Plan No Data Provided for This Section Plan of Care Plan of Care Date Source Discharge Date 04/19/18 11:27pm Disposition HOME, SELF-CARE Condition at Discharge Stable Instructions/Education Provided Abdominal Pain - Adult Flank Pain Forms Provided Work/School Excuse Prescriptions See Medication Section Referrals GUY STROUD DO Order Date: Call for an appointment Address: [facility] [place] FLORES [address] [address] Additional Instructions/Education Call for follow up appointment to see your medical provider or the referral listed. Take over the counter Motrin or Tylenol medication as needed for comfort. You must follow up with Urologist due to the findings of multiple renal cystic leasions. If prescribed pain medication on discharge, take the pain medication as prescribed and adhere to the warnings given for pain medication such as no swimming, driving operating heavy machinery, drinking or mixing with other medications that can interact with the narcotic. discussed at the bedside, drink fluids, rest and return to the emergency department for any fever, shortness of breath, chest pain, abdominal pain, trouble handling oral secretions or any new concerns. 04/19/2018 [facility] Social History Social History Date Source Social History Problem Response Recorded Date/Time Onset Date Status Hx Psychiatric Problems No 09/26/2016 10:23pm Not Applicable Not Applicable Hx Alcohol Use No 09/26/2016 10:23pm Not Applicable Not Applicable Smoking Status Start Date Stop Date Never Smoker 04/19/2018 [facility] Family History No Data Provided for This Section Advance Directives Order Name Results Value Date Source Advance Directives Advance Directives Directive Response Recorded Date/Time Does the patient have an advance directive? No 09/26/16 10:23pm If yes, is advance directive on file with [facility]? No 06/16/09 11:45pm If not on file with [facility] will patient provide a copy? No 09/26/16 3:12pm Do you have a Directive to Physician? No 04/19/18 7:55pm Do you have a Medical Power of [place]? No 04/19/18 7:55pm Do you have an out of hospital Do Not Resuscitate Order? No 04/19/18 7:55pm Do you have any special needs we should be aware of? No 04/19/18 7:55pm Do you have a support person here with you today? Yes 04/19/18 7:55pm Did patient receive Notice of Privacy Practices? Yes 04/19/18 7:55pm Did patient receive patient rights and responsibilities? Yes 04/19/18 7:55pm 04/19/2018 [facility] Functional Status No Data Provided for This Section
--- OUTSIDE RECORDS SUMMARY | 2019-04-15 15:21 | XMS REPORT | Clinical Summary ---
Author Author [employer] Organization [employer] Address Unknown Phone Unavailable Care Team Providers Care Public Finance Specialist Name Role Phone Kirit Connor DO PCP [...] Health Maintenance Due Date Last Done Comments BREAST CANCER SCREENING 2015 COLONOSCOPY SCREENING 2015 SHINGLES VACCINES (#1) 2015 INFLUENZA VACCINE 05/10/2019 Results Not on fileafter 04/14/2018 Insurance Type Payer Benefit Subscriber ID Effective Phone Address Plan / Dates Group O UHC MEDICARE UHC DUAL xxxxxxxxx 2015-P COMPLETE resent [facility] (Home) [place] [address] Advance Directives Patient has advance care planning documents on file. For more information, nicole gaviria contact: Del Schwartz [address] [place] [address]
--- OUTSIDE RECORDS SUMMARY | 2019-04-15 15:21 | XMS REPORT | Summary of Care ---
Author Author Antonia Dorsey M.A. Unknown Address Unknown Phone Unavailable Care Team Providers Care Blue Line Trimmer Name Role Phone ILYA ROTHMAN M.D. 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 Quantity: 1 ILYA ROTHMAN M.D. * Start : 10-Jan-2018 Active 10 ML Bottle Allergies and Adverse Reactions Name Dates Details Allergy history not documented Status: Past Medical History Name Dates Details History of asthma (V12.69, Z87.09) Status: Resolved History of diabetes mellitus (V12.29, Z86.39) Status: Resolved History of fibromyalgia (V13.59, Z87.39) Status: Resolved History of hypertension (V12.59, Z86.79) Status: Resolved History of immunodeficiency (V12.29, Z86.2) Status: Resolved History of kidney disease (V13.09, Z87.448) Status: Resolved Procedures Procedure Dates Details Procedures not documented Immunization Name Dates Details Immunizations not documented Social History Name Dates Details Unknown if ever smoked Vital Signs Date Test Result Details [id number] BP Systolic 121 mm[Hg] Status: BP Diastolic 74 mm[Hg] Status: Height 65 in Status: Weight 198.5 lb Status: Body Mass Index Calculated 33.03 kg/m2 Status: Body Surface Area Calculated 1.97 m2 Status: Heart Rate 76 /min Status: Results Date Description Value Details Results not documented Plan of Care Name Dates Details Planned Observations Planned Goals not documented Planned Encounters Appointment; ILYA ROTHMAN M.D. On: 17-Jan-2018 11:15 Interventions Provided Medication Changes* Acetasol HC 2-1 % Otic Solution - Start Plan* 1. Begin Acetasol TID for the next week. Fu in 1 week. Instructions Name Dates Details Instructions not documented Encounters Appointment; ILYA ROTHMAN M.D. Encounter Diagnosis: Problem not documented On: 10-Jan-2018 8:45
--- OUTSIDE RECORDS SUMMARY | 2019-04-15 15:21 | XMS REPORT ---
Author Author [facility] Address Unknown Phone Unavailable Care Team Providers Care Senior Corporate Accountant Name Role Phone LISANELLYKymberly Unavailable Unavailable FLOYD, S AMBICA Unavailable Unavailable TIARRA, P MARCO A Unavailable Unavailable HAMPEL, NEHEMIA Unavailable Unavailable SWEET, A LAIRD Unavailable Unavailable LM BAUTISTA Unavailable Unavailable Payers Payer Name Policy Type Policy Number Effective Date Expiration Date Problems This patient has no known problems. Allergies, Adverse Reactions, Alerts Allergy Name Allergy Type Status Severity Reaction(s) Onset Date Inactive Date Treating Clinician Comments corn DA Active 2018-07-24 00:00:00 egg DA Active 2018-07-24 00:00:00 soy DA Active 2018-07-24 00:00:00 wheat DA Active 2018-07-24 00:00:00 RED MEATS DA Active 2018-07-24 00:00:00 hydrocortisone DA Active MO 2018-07-20 00:00:00 neomycin DA Active MO 2018-07-20 00:00:00 ciprofloxacin DA Active MO 2018-07-20 00:00:00 vancomycin DA Active MO 2018-07-20 00:00:00 polymyxin B DA Active MO 2018-07-20 00:00:00 seafood DA Active MO 2018-07-20 00:00:00 shelfish DA Active MO 2018-07-20 00:00:00 Penicillins DA Active SV 2018-07-19 00:00:00 iodine DA Active SV 2018-07-19 00:00:00 codeine DA Active U 2018-07-19 00:00:00 Penicillins DA Active SV 2018-06-15 00:00:00 iodine DA Active SV 2018-06-15 00:00:00 codeine DA Active U 2018-06-15 00:00:00 Penicillins DA Active SV 2016-08-24 00:00:00 iodine DA Active SV 2016-08-24 00:00:00 Medications This patient has no known medications. Results Test Description Test Time Test Comments Text Results Atomic Results Result Comments VQ LUNG SCAN VENT PERFUSION 2019-01-16 15:37:00 [place] [address] Patient Name: HERNANDEZ VIERA I MR #: [id number] : 1965 Age/Sex: 53/F Req #: [id number] Adm Physician: MAYA DAY MD Ordered by: MAYA DAY MD Report #: [id number] Location: [facility] Room/Bed: [place] [address] Procedure: [id number] NM/VQ LUNG SCAN VENT PERFUSION Exam Date: Exam Time: REPORT STATUS: Signed Ventilation/perfusion lung scan Clinical Information: 53 F with chest pain and intermittent SOB Comparison: CT chest without contrast 01/14/2019 Discussion: Xenon-133 gas 10.5 mCi was administered via inhalation. Dynamic images of the lungs in the posterior projection were obtained through single breath and washout phases. Distribution of tracer activity is irregular throughout the lungs. There are no segmental ventilatory defects. Washout of tracer is diffusely delayed with no air trapping. Perfusion images of the lungs were obtained in multiple projections following intravenous administration of approximately 5 mCi of Tc- 99m MAA. Distribution of tracer appears physiologic throughout the lungs. The contours of the lungs are well demarcated. There are no segmental perfusion defects of any size. The cardiomediastinal silhouette is unremarkable. Impression: Scan findings represent a VERY LOW probability for acute pulmonary embolic disease based on the PIOPED II criteria. Scan evidence of obstructive lung disease. Signed by: Dr. Juan Pickard M.D. on 01/16/2019 3:40 PM Dictated By: JUAN PICKARD MD 39 Transcribed By: WILMAN on 01/16/191539 COPY TO: MAYA DAY MD Stress Test - Treadmill ONLY 2019-01-15 19:07:00 [place] [address] Patient Name : HERNANDEZ VIERA I MR #: [id number] : 1965 Age/Sex: 53/F Adm Physician : MAYA DAY MD Admit Date : 01/14/19 Location : [facility] Room/Bed : [place] [address] REPORT: Myoview Stress Test DATE OF STUDY: 01/15/2019 11:12:00 PROCEDURE TITLE: Rest/stress single isotope SPECT imaging with pharmacologic stress and gated SPECT imaging. INDICATION: Chest pain. PROCEDURE: Pharmacologic stress testing was performed with regadenoson per protocol. The heart rate was 72 beats per minute at rest and increased to 136 beats per minute during the regadenoson infusion. The rest blood pressure was 123/77 and decreased to 119/83 mmHg, which is a normal response. The resting electrocardiogram demonstrated normal sinus rhythm. There were no ST-segment changes suggestive of myocardial ischemia. Myocardial perfusion imaging was performed at rest following the injection of 11 mCi of tetrofosmin. At peak pharmacologic effect, the patient was injected with 33 mCi of tetrofosmin. Gated post-stress tomographic imaging was performed. FINDINGS: The overall quality of the study is good. Left ventricular cavity is noted to be of normal size on the rest and stress studies. SPECT images demonstrate homogeneous tracer distribution throughout the myocardium. Gated SPECT imaging reveals normal myocardial thickening and wall motion. The left ventricular ejection fraction is calculated to be 68%. IMPRESSION: Myocardial perfusion imaging is normal. Overall, left ventricular systolic function was normal without regional wall motion abnormalities. ACCESSION NUMBER: [id number]. Rhina Márquez MD ABS/CARLOS /[id number] Signature Date Dictated By: RHINA MÁRQUEZ MD Transcribed By: CARLOS on 01/15/19 <Electronically signed by RHINA MÁRQUEZ MD><<Signature on File>>02/12/19 0739 COPY TO: CT CHEST W/O CONTRAST-HOPD 2019-01-14 19:51:00 [place] [address] Patient Name: HERNANDEZ VIERA I MR #: [id number] : 1965 Age/Sex: 53/F Req #: [id number] Adm Physician: Ordered by: HUMAIRA RICKETTS MD Report #: [id number] Location: [facility] Room/Bed: Procedure: [id number] HOPD/CT CHEST W/O CONTRAST-HOPD Exam Date: Exam Time: REPORT STATUS: Signed EXAMINATION: CT scan of the chest without contrast. TECHNIQUE: Helical CT images of the chest were performed from the lung apices to the level of the adrenal glands. No intravenous contrast was administered . Coronal and sagittal reformatted images were obtained.Dose modulation, iterative reconstruction, and/or weight based adjustment of the mA/kV was utilized to reduce the radiation dose to as low as reasonably achievable. COMPARISON: None. CLINICAL HISTORY:Left arm pain DISCUSSION: ABSENCE OF INTRAVENOUS CONTRAST DECREASES SENSITIVITY FOR DETECTION OF FOCAL LESIONS AND VASCULAR PATHOLOGY. LINES/TUBES: None. LUNGS AND AIRWAYS: The lungs are clear. No pulmonary nodules, masses or consolidation. The airways are normal, without endobronchial lesions. PLEURA: No pneumothorax or pleural effusions. HEART AND MEDIASTINUM: The thyroid gland is normal. The heart and pericardium are within normal limits. LYMPH NODES: There is no mediastinal, hilar or axillary lymphadenopathy. ABDOMEN: Limited contrast-enhanced views of the upper abdomen show no abnormality within the visualized liver, spleen, pancreas, or kidneys. The adrenal glands are normal. BONES AND SOFT TISSUES: Partially visualized renal cysts. Cholecystectomy. Calcific tendinosis of the rotator cuffs. IMPRESSION: No acute CT finding. Signed by: Dr. Gamaliel Lawson M.D. on 01/14/2019 8:16 PM Dictated By: GAMALIEL LAWSON MD 15 Transcribed By: WILMAN on 01/14/192015 COPY TO: HUMAIRA RICKETTS MD BREAST ULTRASOUND BILATERAL 2019-01-08 12:50:32 - DIAG MAMM BILATERAL EVE CAD DIGITALBILATERAL DIGITAL DIAGNOSTIC MAMMOGRAM 3D/2D WITH CAD: 01/08/2019CLINICAL: Followup to previous exam. Digital breast tomosynthesis was performed in addition to routine CC and MLO views. Current mammographic images were evaluated by either a ChemiSense M-Vu or a Freeze Tag ImageChecker CAD (computer aided detection system). Comparison is made to exams dated 07/27/2017 mammogram, 08/20/2014 mammogram - [facility] and 02/14/2013 mammogram - [facility]. The tissue of both breasts is heterogeneously dense. This may lower the sensitivity of mammography. No suspicious mass, architectural distortion, malignant type calcification, or lymph node abnormality detected. INCOMPLETE ASSESSMENT: ADDITIONAL IMAGING EVALUATION RECOMMENDEDThere is no mammographic evidence of malignancy. Ultrasound to follow.- BREAST ULTRASOUND BILATERALULTRASOUND OF BOTH BREASTS AND BOTH AXILLA: 01/08/2019Comparison is made to exams dated 07/27/2017 mammogram, [facility], and 02/14/2013 mammogram - [facility]. Real-time ultrasound of both breasts and both axilla was performed. No abnormalities were seen sonographically in either axilla. Benign cysts and dilated ducts seen bilaterally. No solid masses. Clinical breast exam unremarkable. IMPRESSION: BENIGN There is no sonographic evidence of malignancy. Patient has been informed that she has areas of dense breast tissue that could make it difficult to find a small cancer. A screening mammogram and supplemental ultrasound for dense breast tissue is recommended in 1 year.Geena Xavier M.D. dm/:01/08/2019 12:50:32 Holistic Pulser: Lottie Snyder , [facility] BIRADS 1-2 Combo FU Letter Mammogram BI-RADS: 0 Indeterminate Ultrasound BI-RADS: 2 Benign DIAG MAMM BILATERAL EVE CAD DIGITAL 2019-01-08 12:50:32 - DIAG MAMM BILATERAL EVE CAD DIGITALBILATERAL DIGITAL DIAGNOSTIC MAMMOGRAM 3D/2D WITH CAD: 01/08/2019CLINICAL: Followup to previous exam. Digital breast tomosynthesis was performed in addition to routine CC and MLO views. Current mammographic images were evaluated by either a ChemiSense M-Vu or a Freeze Tag ImageChecker CAD (computer aided detection system). Comparison is made to exams dated 07/27/2017 mammogram, [facility], and 02/14/2013 mammogram - [facility]. The tissue of both breasts is heterogeneously dense. This may lower the sensitivity of mammography. No suspicious mass, architectural distortion, malignant type calcification, or lymph node abnormality detected. INCOMPLETE ASSESSMENT: ADDITIONAL IMAGING EVALUATION RECOMMENDEDThere is no mammographic evidence of malignancy. Ultrasound to follow.- BREAST ULTRASOUND BILATERALULTRASOUND OF BOTH BREASTS AND BOTH AXILLA: 01/08/2019Comparison is made to exams dated 07/27/2017 mammogram, [facility], and 02/14/2013 mammogram - [facility]. Real-time ultrasound of both breasts and both axilla was performed. No abnormalities were seen sonographically in either axilla. Benign cysts and dilated ducts seen bilaterally. No solid masses. Clinical breast exam unremarkable. IMPRESSION: BENIGN There is no sonographic evidence of malignancy. Patient has been informed that she has areas of dense breast tissue that could make it difficult to find a small cancer. A screening mammogram and supplemental ultrasound for dense breast tissue is recommended in 1 year.Geena Xavier M.D. dm/:01/08/2019 12:50:32 Holistic Pulser: Lottie Snyder FW, [facility]FWletter sent: BIRADS 1-2 Combo FU Letter Mammogram BI-RADS: 0 Indeterminate Ultrasound BI-RADS: 2 Benign ABDOMEN ACUTE SERIES W/PA CXR 2018-09-21 15:38:00 [place] [address] Patient Name: HERNANDEZ VIERA I MR #: [id number] : 1965 Age/Sex: 53/F Req #: [id number] Adm Physician: Ordered by: ZACHARY PAVON JEWEL STAKER Report #: [id number] Location: ER Room/Bed: Procedure: [id number] DX/ABDOMEN ACUTE SERIES W/PA CXR Exam Date: Exam Time: REPORT STATUS: Signed Examination: Upright chest and abdominal radiographs COMPARISON: CT abdomen and pelvis without contrast 09/19/2018 INDICATION: Abdominal pain, CT abdomen and pelvis 2 days ago with negative findings DISCUSSION: Chest: The lungs are well-inflated and without focal consolidation, pleural effusion, or pneumothorax. Cardiomediastinal contour and pulmonary vasculature are within normal limits. No acute osseous abnormalities. Degenerative changes of the thoracic spine. No free air under the diaphragm. Abdomen: The bowel gas pattern shows no dilated, air-filled loops of bowel. Gas and fecal material is noted throughout the large bowel and rectum. No air-fluid levels on the upright radiograph. Calcified renal cystic lesions are faintly visualized. No abnormal abdominal mass effect or organomegaly. Regional skeletal structures are intact. Surgical clips project over the right upper quadrant of the abdomen, compatible with prior cholecystectomy IMPRESSION: 1. No acute cardiopulmonary abnorm alities. 2. Nonobstructive bowel gas pattern. No pneumoperitoneum. Signed by: Dr. Amaya Vitale M.D. on 09/21/2018 3:42 PM Dictated By: AMAYA VITALE MD 41 Transcribed By: WILMAN on 09/21/181541 COPY TO: ZACHARY PAVON NP CT ABDOMEN/PELVIS WO 2018-09-19 15:13:00 [place] [address] Patient Name: HERNANDEZ VIERA I MR #: [id number] : 1965 Age/Sex: 53/F Req #: [id number] Adm Physician: Ordered by: MARCO A MAYEN MD Report #: [id number] Location: ER Room/Bed: Procedure: [id number] CT/CT ABDOMEN/PELVIS WO Exam Date: 09/19/18 Exam Time: 1450 REPORT STATUS: Signed EXAMINATION: CT of the abdomen and pelvis without contrast. TECHNIQUE: Spiral CT images of the abdomen and pelvis were performed from the lung bases to the lesser trochanters. No intravenous contrast was given per renal stone protocol. Coronal and sagittal reformatted images were obtained. COMPARISON: CT abdomen and pelvis without contrast 04/19/2018 CLINICAL HISTORY:Right flank pain and hematuria DISCUSSION: ABSENCE OF INTRAVENOUS CONTRAST DECREASES SENSITIVITY FOR DETECTION OF FOCAL LESIONS AND VASCULAR PATHOLOGY. ABDOMEN/PELVIS: LOWER THORAX: Lung bases are clear. HEPATOBILIARY: No focal hepatic lesions. No intra or extrahepatic biliary ductal dilation. GALLBLADDER: Cholecystectomy clips. SPLEEN: No splenomegaly. PANCREAS: No focal masses or ductal dilatation. ADRENALS: No adrenal nodules. KIDNEYS/URETERS: Right: No renal or ureteral calculi. No hydronephrosis, hydroureter or evidence of obstruction. Stable hypodense/fluid density lesions, some of which contain punctate peripheral calcification, and which are incompletely characterized in this noncontrast study. Stable 1.2 cm high attenuation lesion in the lateral interpolar region, likely reflecting hemorrhagic or proteinaceous contents. No significant perinephric stranding. Left: No renal or ureteral calculi, hydronephrosis or obstruction. Stable fluid density structures in the left renal pelvis, likely reflecting peripelvic cysts. Stable fluid density lesions, likely representing simple cysts, which are incompletely characterized in this noncontrast study. No significant perinephric stranding. PELVIC ORGANS/BLADDER: Bladder is unremarkable. Uterus is absent. No adnexal masses. PERITONEUM/RETROPERITONEUM: No free air or fluid. LYMPH NODES: No intra-abdominal,retroperitoneal, pelvic or inguinal lymphadenopathy. VESSELS: Unremarkable for noncontrast exam. GI TRACT: No bowel dilation or evidence of obstruction. Extensive colonic diverticulosis, without CT evidence of diverticulitis. BONES AND SOFT TISSUES: No aggressive lytic lesions. Mild degenerative disc changes in the lumbosacral spine. IMPRESSION: 1. No renal or ureteral c alculi, hydronephrosis or obstruction. 2. Stable noncontrast appearance of bilateral cystic lesions, some of which contain peripheral calcification, and are incompletely assessed in this exam without IV contrast. Signed by: Dr. Edward Adkins M.D. on 09/19/2018 3:20 PM Dictated By: EDWARD ADKINS MD 1520 Transcribed By: WILMAN on 09/19/18 1520 COPY TO: MARCO A MAYEN MD RENAL RETROPERITONEAL COMP 2018-05-04 11:39:00 [place] [address] Patient Name: HERNANDEZ VIERA I MR #: [id number] : 1965 Age/Sex: 52/F [facility] #: [id number] [facility] Physician: Ordered by: ZOHAIB SCOTT MD Report #: [id number] Location: Room/Bed: Procedure: [id number] US/US RENAL RETROPERITONEAL COMP Exam Date: 05/04/18 Exam Time: 1004 REPORT STATUS: Signed PROCEDURE: US RETROPERITONEAL ( KIDNEY ). COMPARISON: [facility], CT, CT ABDOMEN/PELVIS WO, 04/19/2018, 20:37. INDICATIONS: [...] the current exam. 3. Left peripelvic cyst. Edward Adkins M.D. Dictated by: Edward Adkins M.D. on 05/04/2018 at 11:39 Electronically approved by: Edward Adkins M.D. on 05/04/2018 at 11:39 Dictated By: EDWARD ADKINS MD 113 Transcribed By: JANY on 05/04/18 1139 COPY TO: ZOHAIB SCOTT MD CHEST 2 VIEWS 2018-04-19 22:38:00 [place] [address] Patient Name: HERNANDEZ VIERA MR #: [id number] : 1965 Age/Sex: 52/F Req #: [id number] Adm Physician: Ordered by: BRADY GREEN MD Report #: [id number] Location: ER Room/Bed: Procedure: [id number] DX/CHEST 2 VIEWS Exam Date: 04/19/18 Exam Time: 2003 REPORT STATUS: Signed CHEST 2 VIEWS, Technique: CHEST 2 VIEWS Comparison: 09/26/2016 Clinical history: S RUQ ABD PAIN TO FLANK CHEST (H/O CHOLECYSTECTOMY) DISCUSSION: Stable cardiomediastinal silhouette. No consolidation or edema. No pleural effusion or pneumothorax. IMPRESSION: No acute abnormality Signed by: Dr Angela Sifuentes MD on 04/19/2018 10:39 PM Dictated By: ANGELA SIFUENTES MD 38 Transcribed By: WILMAN on 04/19/182238 COPY TO: BRADY GREEN MD CT ABDOMEN/PELVIS WO 2018-04-19 22:26:00 [place] [address] Patient Name: HERNANDEZ VIERA MR #: [id number] : 1965 Age/Sex: 52/F Req #: [id number] Adm Physician: Ordered by: BRADY GREEN MD Report #: [id number] Location: ER Room/Bed: Procedure: [id number] CT/CT ABDOMEN/PELVIS WO Exam Date: 04/19/18 Exam [...] without IV contrast. Signed by: Dr Angela Sifuentes MD on 04/19/2018 10:37 PM Dictated By: ANGELA SIFUENTES MD 36 Transcribed By: WILMAN on 04/19/182236 [...] (test code=LAC) 0.9 mmol/L 0.5-1.9 Comprehensive Metabolic [id number] 13:39:00* Test Item Value Reference Range Comments [...] race is not provided, and the patient isAfrican-Mauritian, multiply by 1.212. If sex is not [...] the National Kidney Foundat ion,http://nkdep.nih.gov Partial Thromboplastin [id number] 13:25:00* Test Item Value Reference Range Comments aPTT (test code=PTT) 43.70 seconds 24.39-37.25 Prothrombin [id number] 13:25:00* Test Item Value Reference Range Comments PT (test code=PT) 12.10 seconds 9.78-13.35 INR (test code=INR) 1.06 Ratio 0.6-1.2 Urinalysis Vwejvlrx1854-95-14 13:15:00* Test Item Value Reference Range Comments Color (test code=COLOR) Yellow Yellow,Straw,Pl yellow Clarity (test code=CLAR) Clear Clear Specific [place] (test code=SPGR) 1.007 1.001-1.035 pH (test code=PH) [...] (test code=JOSÉ MIGUEL) None /HPF CBC with Rwmnxwxglspg6103-05-72 13:04:00* Test Item Value Reference Range Comments [...] Lymph Abs (test code=ALYMPH) 3.3 K/cumm 0.5-4.6 [place] Abs (test code=AMONO) 0.7 K/cumm 0.0-1.2 Eos Abs (test code=AEOS) 0.25 K/cumm 0.00-0.74 Baso Abs (test code=ABASO) 0.0 K/cumm 0.00-0.21
--- OUTSIDE RECORDS SUMMARY | 2019-04-15 15:22 | XMS REPORT | Summary of Care ---
Author Author LUISA ZHENG M.D. Unknown Address Unknown Phone Unavailable Care Team Providers Care Bell Ringer Name Role Phone LUISA ZHENG M.D. 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.] smoked Vital Signs Date Test Result Details [id number]:45 BP Systolic 126 mm[Hg] Status: BP Diastolic 85 mm[Hg] Status: Height 65 in Status: Weight 198.125 lb Status: Body Mass Index Calculated 32.97 kg/m2 Status: Body Surface Area Calculated 1.97 m2 Status: Heart Rate 84 /min Status: Results Date Description Value Details Results not documented Plan of Care Name Dates Details Planned Observations Planned Goals not documented Interventions Provided Plan* 52 yo F with relapsing polychondritis, now with right TM perforation, mild dysphonia; no subglottic stenosis seen on exam * - dry ear precautions * - reflux precautions * - scope shows no lesions * - reassured patient * - RTC with Dr. Fischer Instructions Name Dates Details Instructions not documented Encounters Appointment; ILYA FISCHER M.D. Encounter Diagnosis: Problem not documented On: 10-Jan-2018 8:45 Appointment; ILYA FISCHER M.D. Encounter Diagnosis: Problem not documented On: 24-Jan-2018 8:15 Appointment; LUISA ZHENG M.D. Encounter Diagnosis: Problem not documented On: 08-May-2018 13:15
[2019-04-15] MEDS ORDERED: SODIUM CHLORIDE 0.9% 1000ML 1,000 ML IV SCH (16:00)
[2019-04-15] MEDS ORDERED: KETOROLAC TROMETHAMINE 30 MG/ML VIAL IV ONE (16:30)
[2019-04-15] MEDS ORDERED: FENTANYL CITRATE/PF 100MCG/2 ML INJ IV ONE (16:30)
[2019-04-15] MEDS ORDERED: KETOROLAC TROMETHAMINE 30 MG/ML VIAL ONE (16:38)
[2019-04-15] MEDS ORDERED: ALBUTEROL/IPRATROPIUM 3 ML NEB ONE (16:39)
[2019-04-15] MEDS ORDERED: FENTANYL CITRATE/PF 100MCG/2 ML INJ ONE (16:39)
[2019-04-15] MEDS ORDERED: SODIUM CHLORIDE 0.9% 1000ML 1,000 ML ONE (16:39)
[2019-04-15] MEDS ORDERED: ALBUTEROL/IPRATROPIUM 3 ML NEB NEB ONE (16:45)
[2019-04-15] MEDS ORDERED: ULTRAM 50MG50 MG PO (17:19)
[2019-04-15] MEDS ORDERED: NAPROSYN500 MG PO (17:19)
[2019-04-15] MEDS ORDERED: COLACE100 MG PO (17:20)
[2019-04-15] MEDS ORDERED: METHYLPREDNISOLONE SOD SUCC 125 MG/2ML VIAL IV ONE (17:30)
--- NOTE | 2019-04-15 17:48 | Diagnostic Imaging Report ---
EXAM: CT Abdomen and Pelvis WITHOUT contrast INDICATION: ^[id number] ^[id number] COMPARISON: CT chest 01/14/2019, KUB 09/21/2018, and CT abdomen and pelvis 09/19/2018 TECHNIQUE: Abdomen and pelvis were scanned utilizing a multidetector helical scanner from the lung base to the pubic symphysis without administration of IV contrast. Absence of intravenous contrast decreases sensitivity for detection of focal lesions and vascular pathology. Coronal and sagittal reformations were obtained. Routine protocol was performed. IV CONTRAST: None. ORAL CONTRAST: None RADIATION DOSE: Total DLP: 636.4 mGy*cm Estimated effective dose: (DLP x 0.015 x size factor) mSv COMPLICATIONS: None FINDINGS: LINES and TUBES: None. LOWER THORAX: Unremarkable HEPATOBILIARY: No focal hepatic lesions. No biliary ductal dilation. GALLBLADDER: Cholecystectomy. SPLEEN: No splenomegaly. PANCREAS: No focal masses or ductal dilatation. ADRENALS: No adrenal nodules KIDNEYS/URETERS: No hydronephrosis. Stable few bilateral renal cysts sign of then with peripheral calcification, measuring up to 2.1 cm on the right and 2.2 cm on the left. Multiple left parapelvic cysts are unchanged. Unchanged 2 mm calcified stone in the upper pole of the right kidney on series 2, image 24. No additional calcified stones in the kidneys or ureters. GI TRACT: No abnormal distention, wall thickening, or evidence of bowel obstruction. Diffuse diverticulosis throughout the colon, worse in the sigmoid. Mild fat stranding surrounding the distal sigmoid colon in the left lower quadrant on coronal image 50. The appendix is not seen. PELVIC ORGANS/BLADDER: The urinary bladder is unremarkable. Hysterectomy. LYMPH NODES: No lymphadenopathy. VESSELS: Unremarkable. PERITONEUM / RETROPERITONEUM: No free air or fluid. BONES: Unremarkable. SOFT TISSUES: Unremarkable. IMPRESSION: 1. Extensive diverticulosis throughout the colon with mild focal acute diverticulitis in the distal sigmoid. 2. No free air, abscess, or free fluid. Signed by: Dr. Alexa Rosales M.D. on 04/15/2019 5:44 PM
[2019-04-15] MEDS ORDERED: BACTRIM DS TAB1 EACH PO (17:58)
[2019-04-15] MEDS ORDERED: FLAGYL500 MG PO (17:58)
[2019-04-15 18:59] VITALS: BP 112/67
== END 2019-04-15 18:14 | disposition home or self-care (01) ==
LOC: FSED 15:18
DX: R10.30 Lower abdominal pain, unspecified (principal); K57.32 Diverticulitis of large intestine without perforation or abscess without bleeding
CPT/HCPCS: 74176; 80053; 81003; 85025; 96374; 96375; 99284; J1885; J2930; J7030; J3010

== ENCOUNTER 2019-05-28 14:02 | Emergency (ER) | payer MEDICARE, OTHER ==
[~2019-05-28] VITALS: Ht 165.1 cm; Wt 72.4 kg
[~2019-05-28 14:02] MED LIST changes: +BACTRIM DS TAB1 EACH PO; +COLACE100 MG PO; +FLAGYL500 MG PO; +NAPROSYN500 MG PO; +ULTRAM 50MG50 MG PO
--- OUTSIDE RECORDS SUMMARY | 2019-05-28 14:05 | XMS REPORT | Clinical Summary ---
Author Author [facility] Address Unknown Phone Unavailable Care Team Providers Care Solar Business Developer Name Role Phone Kirit Connor DO PCP [...] INFLUENZA VACCINE 05/10/2019 Results Not on fileafter 05/27/2018 Insurance Type Payer Benefit Subscriber ID Effective Phone Address Plan / Dates Group O UHC MEDICARE UHC DUAL xxxxxxxxx 2015-P COMPLETE resent [facility] (Home) [place] [address] Advance Directives For more information, please contact: [phone] Patient Supervisor Assembly Stock Explanation Type Date Recorded Advance Directives, Living Will and Medical Power of Cell Assembly Pinner
--- OUTSIDE RECORDS SUMMARY | 2019-05-28 14:06 | XMS REPORT | Continuity of Care Document ---
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 [employer] Information Exchange Unavailable Unavailable Problems No Data Provided for This Section Medications Medication Details Route Status Patient Instructions Ordering Provider Order Date Source Acetaminophen With Codeine (Tylenol With Codeine #3 Tablet) 1 Each Tablet Every 4 Hours for Pain Active [facility] Esomeprazole Magnesium (Nexium) 40 Mg Capsule.dr Daily as needed for Indigestion Active PROTONIX THERAPEUTIC SUBSTITUTE FOR NEXIUM PER [facility] Levofloxacin (Levaquin) 500 Mg Tablet Daily Active [facility] Meperidine Hcl/Pf (Demerol 25 Mg/Ml Syringe) 25 Mg/1 Ml Disp.syrin Once as needed for Pain Active [facility] Promethazine Hcl (Phenergan) 25 Mg/1 Ml Ampul Once as needed for Nausea Active [facility] Allergies, Adverse Reactions, Alerts Substance Category Reaction Severity Reaction type Status Date Reported Comments Source Iodine Unknown Allergy to Substance Active 01/03/2017 [facility] beef derived (bovine) Unknown Allergy to Substance Active 01/03/2017 [facility] shellfish derived Severe Propensity to adverse reactions Active 01/03/2017 [facility] Soy Unknown Allergy to Substance Active 01/03/2017 [facility] penicillin Unknown Allergy to Substance Active 01/03/2017 [facility] Penicillin Mild Allergy to Substance Active 04/19/2018 [facility] Codeine Mild Allergy to Substance Active 04/19/2018 [facility] Hydrocortisone Mild Allergy to Substance Active 04/19/2018 [facility] Ciprofloxacin Mild Allergy to Substance Active 04/19/2018 [facility] Vancomycin Mild Allergy to Substance Active 04/19/2018 [facility] Immunizations No Data Provided for This Section Results Order Name Results Value Reference Range Date Interpretation Comments Source Automated blood basophil count (count/volume) Automated blood basophil count (count/volume) 0.0 0.0 - 0.1 04/19/2018 [facility] Automated blood basophil count as percentage of total leukocytes Automated blood basophil count as percentage of total leukocytes 0.3 0.0 - 1.0 04/19/2018 [facility] Automated blood eosinophil count Automated blood eosinophil count 0.0 0.0 - 0.4 04/19/2018 [facility] Automated blood eosinophil count as percentage of total leukocytes Automated blood eosinophil count as percentage of total leukocytes 0.0 0.0 - 6.0 04/19/2018 [facility] Automated blood hematocrit (volume fraction) Automated blood hematocrit (volume fraction) 40.9 34.2 - 44.1 04/19/2018 [facility] Automated blood lymphocyte count as percentage ot total leukocytes Automated blood lymphocyte count as percentage ot total leukocytes 11.8 18.0 - 39.1 04/19/2018 [facility] Automated blood monocyte count as percentage of total leukocytes Automated blood monocyte count as percentage of total leukocytes 1.4 4.4 - 11.3 04/19/2018 [facility] Automated blood neutrophil count Automated blood neutrophil count 10.1 2.1 - 6.9 04/19/2018 [facility] Automated blood platelet count (count/volume) Automated blood platelet count (count/volume) 381 140 - 360 04/19/2018 [facility] Automated blood segmented neutrophil count as percentage of total leukocytes Automated blood segmented neutrophil count as percentage of total leukocytes 85.2 38.7 - 80.0 04/19/2018 [facility] Automated erythrocyte mean corpuscular hemoglobin (mass per erythrocyte) Automated erythrocyte mean corpuscular hemoglobin (mass per erythrocyte) 30.6 28 - 32 04/19/2018 [facility] Automated erythrocyte mean corpuscular hemoglobin concentration measurement (mass/volume) Automated erythrocyte mean corpuscular hemoglobin concentration measurement (mass/volume) 33.7 31 - 35 04/19/2018 [facility] Automated erythrocyte mean corpuscular volume Automated erythrocyte mean corpuscular volume 90.7 81 - 99 04/19/2018 [facility] Blood erythrocytes automated count (number/volume) Blood erythrocytes automated count (number/volume) 4.51 3.6 - 5.1 04/19/2018 [facility] Blood hemoglobin measurement (moles/volume) Blood hemoglobin measurement (moles/volume) 13.8 12.0 - 16.0 04/19/2018 [facility] Blood leukocytes automated count (number/volume) Blood leukocytes automated count (number/volume) 11.83 4.8 - 10.8 04/19/2018 [facility] Blood lymphocytes count (number/volume) Blood lymphocytes count (number/volume) 1.4 1.0 - 3.2 04/19/2018 [facility] Blood monocytes automated count (number/volume) Blood monocytes automated count (number/volume) 0.2 0.2 - 0.8 04/19/2018 [facility] Estimated glomerular filtration rate (GFR) determination Estimated glomerular filtration rate (GFR) determination >60 60 04/19/2018 [facility] Glucose measurement Glucose measurement 235 74 - 118 04/19/2018 [facility] Plasma globulin measurement (mass/volume) Plasma globulin measurement (mass/volume) 4.5 2.3 - 3.5 04/19/2018 [facility] Serum or plasma alanine aminotransferase measurement (enzymatic activity/volume) Serum or plasma alanine aminotransferase measurement (enzymatic activity/volume) 20 0 - 55 04/19/2018 [facility] Serum or plasma albumin measurement (mass/volume) Serum or plasma albumin measurement (mass/volume) 3.9 3.5 - 5.0 04/19/2018 [facility] Serum or plasma albumin/globulin mass ratio Serum or plasma albumin/globulin mass ratio 0.9 0.8 - 2.0 04/19/2018 [facility] Serum or plasma alkaline phosphatase measurement (enzymatic activity/volume) Serum or plasma alkaline phosphatase measurement (enzymatic activity/volume) 72 40 - 150 04/19/2018 [facility] Serum or plasma amylase measurement (enzymatic activity/volume) Serum or plasma amylase measurement (enzymatic activity/volume) 38 25 - 125 04/19/2018 [facility] Serum or plasma anion gap Serum or plasma anion gap 19.2 8 - 16 04/19/2018 [facility] Serum or plasma calcium measurement (mass/volume) Serum or plasma calcium measurement (mass/volume) 9.8 8.4 - 10.2 04/19/2018 [facility] Serum or plasma carbon dioxide, total measurement (moles/volume) Serum or plasma carbon dioxide, total measurement (moles/volume) 18 22 - 29 04/19/2018 [facility] Serum or plasma chloride measurement (moles/volume) Serum or plasma chloride measurement (moles/volume) 107 98 - 107 04/19/2018 [facility] Serum or plasma creatine kinase MB measurement (mass/volume) Serum or plasma creatine kinase MB measurement (mass/volume) 0.40 0 - 5.0 04/19/2018 [facility] Serum or plasma creatine kinase measurement (enzymatic activity/volume) Serum or plasma creatine kinase measurement (enzymatic activity/volume) 65 29 - 168 04/19/2018 [facility] Serum or plasma creatinine measurement (mass/volume) Serum or plasma creatinine measurement (mass/volume) 0.84 0.57 - 1.11 04/19/2018 [facility] Serum or plasma lipase measurement (enzymatic activity/volume) Serum or plasma lipase measurement (enzymatic activity/volume) 21 8 - 78 04/19/2018 [facility] Serum or plasma magnesium measurement (mass/volume) Serum or plasma magnesium measurement (mass/volume) 2.1 1.3 - 2.1 04/19/2018 [facility] Serum or plasma potassium measurement (moles/volume) Serum or plasma potassium measurement (moles/volume) 4.2 3.5 - 5.1 04/19/2018 [facility] Serum or plasma protein measurement (mass/volume) Serum or plasma protein measurement (mass/volume) 8.4 6.5 - 8.1 04/19/2018 [facility] Serum or plasma sodium measurement (moles/volume) Serum or plasma sodium measurement (moles/volume) 140 136 - 145 04/19/2018 [facility] Serum or plasma total bilirubin measurement (mass/volume) Serum or plasma total bilirubin measurement (mass/volume) 0.3 0.2 - 1.2 04/19/2018 [facility] Serum or plasma urea nitrogen measurement (mass/volume) Serum or plasma urea nitrogen measurement (mass/volume) 16 7 - 26 04/19/2018 [facility] Serum or plasma urea nitrogen/creatinine mass ratio Serum or plasma urea nitrogen/creatinine mass ratio 19 6 - 25 04/19/2018 [facility] Troponin I measurement by highly sensitive enzyme immunoassay Troponin I measurement by highly sensitive enzyme immunoassay 0.003 0 - 0.300 04/19/2018 [facility] Red Cell Distribution Width 14.2 11.7 - 14.4 04/19/2018 [facility] IM GRANULOCYTES % 1.3 0.0 - 1.0 04/19/2018 [facility] Absolute Immature Granulocyte (auto 0.15 0 - 0.1 04/19/2018 [facility] Aspartate Amino Transf (AST/SGOT) 16 5 - 34 04/19/2018 [facility] Automated urine sediment leukocyte count by microscopy (number/high power field) Automated urine sediment leukocyte count by microscopy (number/high power field) <10 0 - 5 04/19/2018 [facility] Bacteria detection in urine sediment by light microscopy Bacteria detection in urine sediment by light microscopy NONE NONE 04/19/2018 [facility] Epithelial cells detection in urine sediment by light microscopy Epithelial cells detection in urine sediment by light microscopy NONE NONE 04/19/2018 [facility] Erythrocytes detection in urine sediment by light microscopy Erythrocytes detection in urine sediment by light microscopy <10 0 - 5 04/19/2018 [facility] Mucus detection in urine sediment by light microscopy Mucus detection in urine sediment by light microscopy FEW RARE 04/19/2018 [facility] Specific gravity of Urine by Test strip Specific gravity of Urine by Test strip 1.015 1.010 - 1.025 04/19/2018 [facility] Urine clarity Urine clarity CLEAR CLEAR 04/19/2018 [facility] Urine color determination Urine color determination YELLOW YELLOW 04/19/2018 [facility] Urine erythrocytes detection Urine erythrocytes detection 2+ NEGATIVE 04/19/2018 [facility] Urine glucose detection Urine glucose detection 3+ NEGATIVE 04/19/2018 [facility] Urine ketones detection by automated test strip Urine ketones detection by automated test strip TRACE NEGATIVE 04/19/2018 [facility] Urine leukocyte esterase detection by dipstick Urine leukocyte esterase detection by dipstick NEGATIVE NEGATIVE 04/19/2018 [facility] Urine nitrite detection Urine nitrite detection NEGATIVE NEGATIVE 04/19/2018 [facility] Urine pH measurement by automated test strip Urine pH measurement by automated test strip 6 5 - 7 04/19/2018 [facility] Urine protein measurement by test strip (mass/volume) Urine protein measurement by test strip (mass/volume) NEGATIVE NEGATIVE 04/19/2018 [facility] Urine total bilirubin measurement (mass/volume) Urine total bilirubin measurement (mass/volume) NEGATIVE NEGATIVE 04/19/2018 [facility] Urine urobilinogen measurement by test strip (mass/volume) Urine urobilinogen measurement by test strip (mass/volume) 0.2 0.2 - 1 04/19/2018 [facility] Pathology Reports No Data Provided for This [...] DC Date Status Source Departed Emergency Room [id number] BRADY GREEN MD 04/19/2018 04/19/2018 [facility] Procedures Procedure Code Date Perfomer Comments Source CT of abdomen and pelvis without contrast [id number] 04/19/2018 [facility] X-ray of chest, two views [id number] 04/19/2018 [facility] Assessment and Plan No Data Provided for This Section Plan of Care Plan of Care Date Source Discharge Date 04/19/18 11:27pm Disposition HOME, SELF-CARE Condition at Discharge Stable Instructions/Education Provided Abdominal Pain - Adult Flank Pain Forms Provided Work/School Excuse Prescriptions See Medication Section Referrals GUY STROUD DO Order Date: Call for an appointment Address: [facility] [place]IR[place] FLORES [address] [address] Additional Instructions/Education Call for follow up appointment [...] oral secretions or any new concerns. 04/19/2018 [facility] Social History Social History Date Source Social History Problem Response Recorded Date/Time Onset Date Status Hx Psychiatric Problems No 09/26/2016 10:23pm Not Applicable Not Applicable Hx Alcohol Use No 09/26/2016 10:23pm Not Applicable Not Applicable Smoking Status Start Date Stop Date Never Smoker 04/19/2018 [facility] Family History No Data Provided for This Section Advance Directives Order Name Results Value Date Source Advance Directives Advance Directives Directive Response Recorded Date/Time Does the patient have an advance directive? No 09/26/16 10:23pm If yes, is advance directive on file with [facility]? No 06/16/09 11:45pm If not on file with [facility] will patient provide a copy? No 09/26/16 3:12pm Do you have a Directive to Physician? No 04/19/18 7:55pm Do you have a Medical Power of Shot Lighter? No 04/19/18 7:55pm Do you have an [...] rights and responsibilities? Yes 04/19/18 7:55pm 04/19/2018 [facility] Functional Status No Data Provided for This Section
--- NOTE | 2019-05-28 14:39 | NUR ---
Pt called her ENT and he is out of the office until and she would like for us to treat her ear here until she can get into see her ENT doctor.
--- NOTE | 2019-05-28 15:20 | Diagnostic Imaging Report ---
Left foot injury, 3 views. History: Pain and bruising to second toe after trauma. Findings: The soft tissues are normal. Bone mineralization is normal. There is no evidence of fracture or dislocation. There are no lytic or sclerotic lesions. The joint spaces are within normal limits. Plantar and posterior calcaneal spurs are present. IMPRESSION: No acute osseous abnormality. Signed by: Jozef Baez on 05/28/2019 3:17 PM
[2019-05-28 15:31] VITALS: BP 95/63
== END 2019-05-28 15:40 | disposition home or self-care (01) ==
LOC: FSED 14:02
DX: S90.32XA Contusion of left foot, initial encounter (principal); W18.30XA Fall on same level, unspecified, initial encounter; Y92.008 Other place in unspecified non-institutional (private) residence as the place of occurrence of the external cause; E11.9 Type 2 diabetes mellitus without complications; M79.7 Fibromyalgia; J45.909 Unspecified asthma, uncomplicated
CPT/HCPCS: 99283

== ENCOUNTER 2019-09-07 18:13 | Emergency (ER) | payer MEDICARE, OTHER ==
[~2019-09-07] VITALS: Ht 165.1 cm; Wt 74.4 kg
[2019-09-07] MEDS ORDERED: KETOROLAC TROMETHAMINE 30 MG/ML VIAL IV ONE (18:37)
[2019-09-07] MEDS ORDERED: ONDANSETRON HCL INJ 2MG/ML 2ML 2 MG/ML VIAL IV ONE (18:37)
[2019-09-07] MEDS ORDERED: SODIUM CHLORIDE 0.9% 1000ML 1,000 ML IV SCH (18:45)
[2019-09-07] MEDS ORDERED: KETOROLAC TROMETHAMINE 30 MG/ML VIAL ONE (19:08)
[2019-09-07] MEDS ORDERED: ONDANSETRON HCL INJ 2MG/ML 2ML 2 MG/ML VIAL ONE (19:08)
[2019-09-07] MEDS ORDERED: SODIUM CHLORIDE 0.9% 1000ML 1,000 ML ONE (19:15)
--- NOTE | 2019-09-07 19:46 | Diagnostic Imaging Report ---
EXAM: CT Abdomen and Pelvis WITHOUT contrast INDICATION: Back pain, query stone. COMPARISON: CT abdomen/pelvis 04/15/2019. TECHNIQUE: Abdomen and pelvis were scanned utilizing a multidetector helical scanner from the lung base to the pubic symphysis without administration of IV contrast. Absence of intravenous contrast decreases sensitivity for detection of focal lesions and vascular pathology. Coronal and sagittal reformations were obtained. Stone protocol is performed. IV CONTRAST: None. ORAL CONTRAST: None RADIATION DOSE: Total DLP: 728 mGy*cm Estimated effective dose: (DLP x 0.015 x size factor) mSv COMPLICATIONS: None FINDINGS: LINES and TUBES: None. LOWER THORAX: Unremarkable HEPATOBILIARY: Subcentimeter left hepatic hypodensity is too small to characterize, but likely represents a cyst. No biliary ductal dilation. GALLBLADDER: Status post cholecystectomy. SPLEEN: No splenomegaly. PANCREAS: No focal masses or ductal dilatation. ADRENALS: No adrenal nodules KIDNEYS/URETERS: No hydronephrosis. There is a 2 mm nonobstructing right upper pole renal stone. No evidence of ureteral stone. Stable scattered renal cysts, some of which contain peripheral calcifications, measuring up to 2.2 cm on the right and 2.1 cm on the left. Multiple left parapelvic cysts are unchanged. There is a wedge-shaped defect in the right upper pole kidney with adjacent hyperdensity, suggestive of prior renal infarct. GI TRACT: No evidence of bowel obstruction or wall thickening. Diffuse diverticulosis throughout the colon, worse in the sigmoid without CT evidence of diverticulitis. Interval resolution of mild inflammatory changes in the distal sigmoid colon. The appendix is not seen. PELVIC ORGANS/BLADDER: Status post hysterectomy. LYMPH NODES: No lymphadenopathy. VESSELS: Unremarkable. PERITONEUM / RETROPERITONEUM: No free air or fluid. BONES: No acute osseous abnormality. No suspicious lytic or blastic lesions. SOFT TISSUES: Unremarkable. IMPRESSION: Nonobstructing 2 mm right upper pole renal stone. No evidence of ureteral stone or hydronephrosis. Interval resolution of mild sigmoid colonic diverticulitis. Signed by: Dr. Joe Fermin MD on 09/07/2019 7:43 PM
[2019-09-07] MEDS ORDERED: POTASSIUM CHLORIDE 20 MEQ TAB CR PO ONE ×2 (19:49→20:03)
[2019-09-07] MEDS ORDERED: ONDANSETRON ODT8 MG PO (19:57)
[2019-09-07] MEDS ORDERED: ULTRAM50 MG PO (19:57)
[2019-09-07] MEDS ORDERED: BACTRIM DS TAB1 EACH PO (19:57)
[2019-09-07] MEDS ORDERED: TRIMETHOPRIM/SULFAMETHOXAZOLE 160-800 MG TAB PO ONE (20:00)
[2019-09-07] MEDS ORDERED: TRIMETHOPRIM/SULFAMETHOXAZOLE 160-800 MG TAB ONE (20:03)
--- NOTE | 2019-09-07 20:10 | NUR ---
pt states bactrim does not help that it makes her infection worse. Dr Jeffries aware and instructed pt to take the medication and to follow up with pcp on tuesday for a change in antibotics. pt states she is not allergic to medication it just doesnt help.
[2019-09-07 20:25] VITALS: BP 134/86
== END 2019-09-07 20:04 | disposition home or self-care (01) ==
LOC: FSED 18:13
DX: R10.33 Periumbilical pain (principal); N30.91 Cystitis, unspecified with hematuria; E87.6 Hypokalemia
CPT/HCPCS: 36415; 74176; 80053; 81003; 83690; 84484; 85025; 87086; 93005; 96374; 96376; 99284; J1885; J2405; J7030

== ENCOUNTER 2020-10-14 20:09 | Emergency (ER) | payer MEDICARE, OTHER ==
[~2020-10-14] VITALS: Ht 162.6 cm; Wt 77.1 kg
[~2020-10-14 20:09] MED LIST changes: +ONDANSETRON ODT8 MG PO; +ULTRAM50 MG PO
[2020-10-14] MEDS ORDERED: SODIUM CHLORIDE 0.9% 1000ML 1,000 ML IV STA (20:12)
[2020-10-14] MEDS ORDERED: ALBUTEROL/IPRATROPIUM 3 ML NEB NEB ONE (20:15)
[2020-10-14] MEDS ORDERED: FAMOTIDINE 20 MG/2 ML VIAL IV ONE ×2 (20:15→20:31)
[2020-10-14] MEDS ORDERED: ONDANSETRON HCL INJ 2MG/ML 2ML 2 MG/ML VIAL IV PRN (20:15)
[2020-10-14] MEDS ORDERED: DIPHENHYDRAMINE HCL INJ 50 MG/ML VIAL IV ONE (20:15)
[2020-10-14] MEDS ORDERED: METHYLPREDNISOLONE SOD SUCC 125 MG/2ML VIAL IV ONE (20:15)
[2020-10-14] MEDS ORDERED: EPINEPHRINE HCL 1:1000 1ML 1 MG/ML AMP IM ONE (20:15)
[2020-10-14] MEDS ORDERED: ZYRTEC10 M3 PO (20:24)
[2020-10-14] MEDS ORDERED: PROVENTIL HFA6.7 GM INH (20:24)
[2020-10-14] MEDS ORDERED: PREDNISONE10 MG PO (20:24)
[2020-10-14] MEDS ORDERED: FAMOTIDINE20 MG PO (20:24)
[2020-10-14] MEDS ORDERED: EPIPEN JR0.15 MG/01 SC (20:24)
[2020-10-14] MEDS ORDERED: METHYLPREDNISOLONE SOD SUCC 125 MG/2ML VIAL ONE (20:30)
[2020-10-14] MEDS ORDERED: DIPHENHYDRAMINE HCL INJ 50 MG/ML VIAL ONE (20:30)
[2020-10-14] MEDS ORDERED: EPINEPHRINE HCL 1:1000 1ML 1 MG/ML AMP ONE (20:30)
[2020-10-14] MEDS ORDERED: ALBUTEROL/IPRATROPIUM 3 ML NEB ONE (20:31)
[2020-10-14] MEDS ORDERED: SODIUM CHLORIDE 0.9% 1000ML 1,000 ML ONE (20:31)
[2020-10-15 02:18] VITALS: BP 116/68
== END 2020-10-14 22:18 | disposition home or self-care (01) ==
LOC: FSED 20:30
DX: T78.2XXA Anaphylactic shock, unspecified, initial encounter (principal); R06.02 Shortness of breath
CPT/HCPCS: 96372; 96374; 96375; 96376; 99283; J0171; J1200; J2930; J7030

== ENCOUNTER 2021-01-06 15:21 | Emergency (ER) | payer MEDICARE, OTHER ==
[~2021-01-06] VITALS: Ht 165.1 cm; Wt 90.7 kg
[~2021-01-06 15:21] MED LIST changes: +EPIPEN JR0.15 MG/01 SC; +FAMOTIDINE20 MG PO; +PROVENTIL HFA6.7 GM INH; +ZYRTEC10 M3 PO
[2021-01-06] MEDS: METHYLPREDNISOLONE SOD SUCC 125 MG/2ML VIAL IV ONE (15:44)
[2021-01-06] MEDS: EPINEPHRINE 0.3 MG/0.3 ML PEN.INJCTR SC STA (15:44)
[2021-01-06] MEDS ORDERED: EPINEPHRINE HCL 1:1000 1ML 1 MG/ML AMP ONE (15:45)
[2021-01-06] MEDS ORDERED: FAMOTIDINE 20 MG/2 ML VIAL IV ONE (15:46)
[2021-01-06] MEDS: DIPHENHYDRAMINE HCL INJ 50 MG/ML VIAL IV ONE (15:47)
[2021-01-06] MEDS: FAMOTIDINE 20 MG/2 ML VIAL IV SCH (15:48)
[2021-01-06] MEDS ORDERED: PREDNISONE20 MG PO (17:35)
== END 2021-01-06 17:49 | disposition home or self-care (01) ==
LOC: FSED 15:45
DX: T78.40XA Allergy, unspecified, initial encounter (principal); T78.2XXA Anaphylactic shock, unspecified, initial encounter; I10 Essential (primary) hypertension; E11.9 Type 2 diabetes mellitus without complications; M79.7 Fibromyalgia
CPT/HCPCS: 99282; J0171; J1200; J2930

== ENCOUNTER 2021-04-23 12:17 | Emergency (ER) | payer MEDICARE, OTHER ==
[~2021-04-23] VITALS: Ht 165.1 cm; Wt 90.7 kg
[~2021-04-23 12:17] MED LIST changes: +PREDNISONE20 MG PO
[2021-04-23 13:00] LABS: BASOPHILS # (AUTO) 0.1 (0.0-0.1); BASOPHILS % 1.2 % (0.0-1.0); EOSINOPHILS # (AUTO) 0.3 (0.0-0.4); EOSINOPHILS % 3.6 % (0.0-6.0); HEMATOCRIT 41.2 % (34.2-44.1); HEMOGLOBIN 13.5 g/dL (12.0-16.0); LYMPHOCYTES # (AUTO) 2.2 (1.0-3.2); LYMPHOCYTES % 29.5 % (18.0-39.1); MEAN CORPUSCULAR HEMOGLOBIN 30.3 pg (28-32); MEAN CORPUSCULAR HGB CONC 32.8 g/dL (31-35); MEAN CORPUSCULAR VOLUME 92.4 fL (81-99); MONOCYTES # (AUTO) 0.9 (0.2-0.8); MONOCYTES % 11.8 % (4.4-11.3); NEUTROPHILS % 53.4 % (38.7-80.0); PLATELET COUNT 319 x10e3/uL (140-360); RED BLOOD COUNT 4.46 x10e6/uL (3.6-5.1); RED CELL DISTRIBUTION WIDTH 13.9 % (11.7-14.4)
[2021-04-23 13:17] LABS: ALBUMIN 3.8 g/dL (3.5-5.0); ALBUMIN/GLOBULIN RATIO 1.1 (0.8-2.0); ANION GAP 14.3 mmol/L (8-16); CALCIUM 8.7 mg/dL (8.4-10.2); CREATININE, SERUM 0.75 mg/dL (0.57-1.11); POTASSIUM 3.3 mmol/L (3.5-5.1)
[2021-04-23 13:25] LABS: CREATINE KINASE MB 0.4 ng/mL (0-5.0)
[2021-04-23] MEDS ORDERED: POTASSIUM CHLORIDE 20 MEQ TAB CR PO ONE (14:00)
[2021-04-23] MEDS ORDERED: ORPHENADRINE CITRATE 30 MG/ML VIAL IM ONE (14:00)
[2021-04-23] MEDS ORDERED: ULTRAM50 MG PO (16:24)
[2021-04-23] MEDS ORDERED: METHOCARBAMOL750 MG PO (16:24)
[2021-04-23] MEDS ORDERED: MOTRIN200 MG PO (16:24)
== END 2021-04-23 16:58 | disposition home or self-care (01) ==
LOC: ER 12:47
DX: R06.02 Shortness of breath (principal); R07.9 Chest pain, unspecified; R11.0 Nausea; R42 Dizziness and giddiness; T78.40XA Allergy, unspecified, initial encounter; T78.2XXA Anaphylactic shock, unspecified, initial encounter; I10 Essential (primary) hypertension; E11.9 Type 2 diabetes mellitus without complications
CPT/HCPCS: 36415; 70450; 71045; 80053; 82550; 82553; 83880; 84484; 85025; 85379; 93005; 99284; J2360

== ENCOUNTER 2021-12-07 10:12 | Emergency (ER) | payer MEDICARE, OTHER ==
[~2021-12-07] VITALS: Ht 165.1 cm; Wt 90.7 kg
[~2021-12-07 10:12] MED LIST changes: +METHOCARBAMOL750 MG PO; +MOTRIN200 MG PO
[2021-12-07] MEDS ORDERED: LEVOFLOXACIN500 MG PO (11:47)
== END 2021-12-07 11:58 | disposition home or self-care (01) ==
LOC: FSED 10:48
DX: M79.671 Pain in right foot (principal); L03.115 Cellulitis of right lower limb; I10 Essential (primary) hypertension; E11.9 Type 2 diabetes mellitus without complications; M79.7 Fibromyalgia
CPT/HCPCS: 99283

== ENCOUNTER → 2022-01-07 | Day surgery (SDC) | payer MEDICARE, OTHER ==
[2022-01-05 11:58] LABS: BASOPHILS # (AUTO) 0.1 (0.0-0.1); BASOPHILS % 0.8 % (0.0-1.0); EOSINOPHILS # (AUTO) 0.2 (0.0-0.4); EOSINOPHILS % 2.6 % (0.0-6.0); HEMATOCRIT 42.2 % (34.2-44.1); HEMOGLOBIN 13.7 g/dL (12.0-16.0); LYMPHOCYTES # (AUTO) 2.4 (1.0-3.2); LYMPHOCYTES % 32.4 % (18.0-39.1); MEAN CORPUSCULAR HEMOGLOBIN 32.4 pg (28-32); MEAN CORPUSCULAR HGB CONC 32.5 g/dL (31-35); MEAN CORPUSCULAR VOLUME 99.8 fL (81-99); MONOCYTES # (AUTO) 0.7 (0.2-0.8); MONOCYTES % 9.6 % (4.4-11.3); NEUTROPHILS # (AUTO) 3.9 (2.1-6.9); NEUTROPHILS % 53.6 % (38.7-80.0); PLATELET COUNT 145 x10e3/uL (140-360); RED BLOOD COUNT 4.23 x10e6/uL (3.6-5.1); RED CELL DISTRIBUTION WIDTH 13.4 % (11.7-14.4)
[~2022-01-07] MED LIST changes: +ALENDRONATE SOD35 MG; +ALIGN4 MG; +AMLODIPINE BESYL5 MG PO; +ASPIRIN81 MG PO; +BENADRYL25 M1 PO; +CEFDINIR300 MG PO; +COQ-10100 MG; +CRESTOR20 MG PO; +DIPHENHYDRAMINE HCL INJ 50 MG/ML VIAL ONE; +FENTANYL CITRATE/PF 100MCG/2 ML INJ ONE; +FEROSUL325 MG PO; +FLOMAX0.4 MG PO; +FOLIC ACID0.4 MG PO; +HYDROCHLOROTH12.5 MG PO; -LEFLUNOMIDE20 MG; +LEFLUNOMIDE20 MG PO; +LEVOFLOXACIN500 MG PO; +LINZESS145 MCG; +LOSARTAN POTASS25 MG PO; +MIDAZOLAM HCL 2 MG/2 ML VIAL ONE; +MIDAZOLAM HCL 5 MG/ML VIAL ONE; +TRULICITY0.75 MG/0. SC; +TRULICITY1.5 MG/0.5
[2022-01-07 09:00] VITALS: BP 107/66
== END | disposition home or self-care (01) ==
LOC: OR 07:07
PROVIDERS: ATTEND Internal Medicine Gastroenterology
DX: D50.0 Iron deficiency anemia secondary to blood loss (chronic) (principal); K29.50 Unspecified chronic gastritis without bleeding; K21.9 Gastro-esophageal reflux disease without esophagitis; K57.30 Diverticulosis of large intestine without perforation or abscess without bleeding; K64.8 Other hemorrhoids; Z71.3 Dietary counseling and surveillance; E66.3 Overweight; E11.9 Type 2 diabetes mellitus without complications; I10 Essential (primary) hypertension; J45.909 Unspecified asthma, uncomplicated; Q61.3 Polycystic kidney, unspecified; B15.9 Hepatitis A without hepatic coma; Z88.6 Allergy status to analgesic agent; Z88.1 Allergy status to other antibiotic agents; Z91.018 Allergy to other foods; Z88.0 Allergy status to penicillin; Z91.013 Allergy to seafood; Z01.810 Encounter for preprocedural cardiovascular examination; Z88.8 Allergy status to other drugs, medicaments and biological substances; Z01.812 Encounter for preprocedural laboratory examination; Z20.822 Contact with and (suspected) exposure to COVID-19; Z79.82 Long term (current) use of aspirin; Z79.899 Other long term (current) drug therapy; Z68.29 Body mass index [BMI] 29.0-29.9, adult
CPT/HCPCS: 36415 ×2; 43239; 45378; 82948; 85025; 93005; J1200; J2250 ×2; J3010; U0002

== ENCOUNTER 2022-02-11 13:44 | Emergency (ER) | payer MEDICARE, OTHER ==
[~2022-02-11] VITALS: Ht 162.6 cm; Wt 75.3 kg
[~2022-02-11 13:44] MED LIST changes: -DIPHENHYDRAMINE HCL INJ 50 MG/ML VIAL ONE; -FENTANYL CITRATE/PF 100MCG/2 ML INJ ONE; -MIDAZOLAM HCL 2 MG/2 ML VIAL ONE; -MIDAZOLAM HCL 5 MG/ML VIAL ONE
[2022-02-11] MEDS ORDERED: SODIUM CHLORIDE 0.9% 1000ML 1,000 ML IV STA (13:58)
[2022-02-11] MEDS ORDERED: FAMOTIDINE 20 MG/2 ML VIAL IV STA (13:58)
[2022-02-11] MEDS ORDERED: METHYLPREDNISOLONE SOD SUCC 125 MG/2ML VIAL IV ONE (14:00)
[2022-02-11] MEDS ORDERED: METHYLPREDNISOLONE SOD SUCC 125 MG/2ML VIAL ONE (14:08)
[2022-02-11] MEDS ORDERED: FAMOTIDINE 20 MG/2 ML VIAL IV ONE (14:08)
[2022-02-11] MEDS ORDERED: SODIUM CHLORIDE 0.9% 1000ML 1,000 ML ONE (14:08)
[2022-02-11] MEDS ORDERED: PREDNISONE50 MG PO (14:35)
[2022-02-11] MEDS ORDERED: VENTOLIN HFA18 GM INH (14:35)
[2022-02-11] MEDS ORDERED: BENADRYL25 M1 PO (14:35)
[2022-02-11] MEDS ORDERED: EPIPEN JR0.15 MG/01 IM (14:35)
[2022-02-11] MEDS ORDERED: FAMOTIDINE20 MG PO (14:35)
[2022-02-11 15:23] VITALS: BP 119/60
== END 2022-02-11 15:25 | disposition home or self-care (01) ==
LOC: FSED 13:59
DX: T63.441A Toxic effect of venom of bees, accidental (unintentional), initial encounter (principal); I10 Essential (primary) hypertension; E11.9 Type 2 diabetes mellitus without complications; K21.9 Gastro-esophageal reflux disease without esophagitis; J45.909 Unspecified asthma, uncomplicated; Q61.3 Polycystic kidney, unspecified; M79.7 Fibromyalgia
CPT/HCPCS: 96374; 96376; 99283; J2930; J7030

== ENCOUNTER 2022-04-04 07:56 | Inpatient (IN) | payer MEDICARE, OTHER ==
[~2022-04-04] VITALS: Ht 162.6 cm; Wt 75.9 kg
[~2022-04-04 07:56] MED LIST changes: +EPIPEN JR0.15 MG/01 IM; +PREDNISONE50 MG PO; +VENTOLIN HFA18 GM INH
[2022-04-04] MEDS ORDERED: ONDANSETRON HCL INJ 2MG/ML 2ML 2 MG/ML VIAL IV STA (08:21)
[2022-04-04] MEDS ORDERED: Morphine 4mg INJECTION 4 MG/ML INJ IV ONE (08:30)
[2022-04-04] MEDS ORDERED: ASPIRIN 325 MG TAB PO ONE (08:30)
[2022-04-04] MEDS ORDERED: ASPIRIN 81 MG CHEW TAB ONE (08:38)
[2022-04-04] MEDS ORDERED: Morphine 4mg INJECTION 4 MG/ML INJ ONE (08:38)
[2022-04-04] MEDS ORDERED: ALIGN4 MG (08:45)
[2022-04-04] MEDS ORDERED: FLAX SEED OIL1 EACH (08:45)
[2022-04-04] MEDS ORDERED: TRULICITY1.5 MG/0.5 (08:45)
[2022-04-04] MEDS ORDERED: ASPIRIN 81 MG CHEW TAB PO ONE (09:45)
[2022-04-04] MEDS ORDERED: HYDRALAZINE HCL 20 MG/ML VIAL IV PRN (12:45)
[2022-04-04] MEDS ORDERED: ACETAMINOPHEN 325 MG TAB PO PRN (12:45)
[2022-04-04] MEDS ORDERED: POLYETHYLENE GLYCOL 3350 17 GM PACK PO PRN (12:45)
[2022-04-04] MEDS ORDERED: CHOLECALCIFEROL 1,000 UNIT TAB PO SCH (13:00)
[2022-04-04] MEDS ORDERED: FERROUS SULFATE 325 MG TAB PO SCH (13:00)
[2022-04-04 13:06] VITALS: BP 108/70
[2022-04-04 13:19] VITALS: BP 108/70
[2022-04-04 13:36] LABS: CREATINE KINASE 50 IU/L (29-168)
[2022-04-04 13:40] VITALS: BP 108/70
[2022-04-04 13:41] VITALS: BP 108/70
[2022-04-04] MEDS: DOCUSATE SODIUM 100 MG CAP PO SCH (16:43)
[2022-04-04] MEDS: METFORMIN HCL 500 MG TAB CR PO SCH (16:43)
[2022-04-04] MEDS: LACTOBACILLUS ACIDOPHILUS CAPSULE PO SCH (16:43)
[2022-04-04] MEDS: FAMOTIDINE 20 MG/2 ML VIAL IV SCH (16:44)
[2022-04-04] MEDS: TUMERIC PO SCH (16:44)
[2022-04-04 16:56] VITALS: BP 96/69
[2022-04-04 20:00] VITALS: BP 113/86
[2022-04-04] MEDS: CRESTOR 10MG PO SCH (21:18)
[2022-04-04] MEDS: MONTELUKAST SODIUM 10 MG TAB PO SCH (21:18)
[2022-04-05] VITALS (8 sets, daily range): BP systolic 91–135; BP diastolic 61–84
[2022-04-05 03:43] LABS: CREATINE KINASE 39 IU/L (29-168)
[2022-04-05 06:30] LABS: BASOPHILS % 0.6 % (0.0-1.0); EOSINOPHILS # (AUTO) 0.2 (0.0-0.4); EOSINOPHILS % 3.2 % (0.0-6.0); HEMATOCRIT 38.1 % (34.2-44.1); HEMOGLOBIN 12.1 g/dL (12.0-16.0); LYMPHOCYTES # (AUTO) 2.2 (1.0-3.2); LYMPHOCYTES % 30.5 % (18.0-39.1); MEAN CORPUSCULAR HEMOGLOBIN 32.1 pg (28-32); MEAN CORPUSCULAR HGB CONC 31.8 g/dL (31-35); MEAN CORPUSCULAR VOLUME 101.1 fL (81-99); MONOCYTES # (AUTO) 0.8 (0.2-0.8); MONOCYTES % 11.1 % (4.4-11.3); NEUTROPHILS # (AUTO) 3.9 (2.1-6.9); NEUTROPHILS % 53.9 % (38.7-80.0); PLATELET COUNT 253 x10e3/uL (140-360); RED BLOOD COUNT 3.77 x10e6/uL (3.6-5.1); RED CELL DISTRIBUTION WIDTH 13.8 % (11.7-14.4)
[2022-04-05 06:51] LABS: ALBUMIN 2.9 g/dL (3.5-5.0); ALBUMIN/GLOBULIN RATIO 0.9 (0.8-2.0); ANION GAP 12.5 mmol/L (8-16); CALCIUM 8.5 mg/dL (8.4-10.2); CHOL/HDL RATIO 3.9 (3.0-3.6); CREATININE, SERUM 0.81 mg/dL (0.57-1.11); MAGNESIUM 1.9 MG/DL (1.3-2.1); PHOSPHORUS 4.2 MG/DL (2.3-4.7); POTASSIUM 3.5 mmol/L (3.5-5.1)
[2022-04-05 07:15] LABS: THYROID STIMULATING HORMONE 1.107 uIU/mL (0.350-4.940)
[2022-04-05] MEDS: FOLIC ACID 1 MG TAB PO SCH (08:58)
[2022-04-05] MEDS: LORATADINE 10 MG TAB PO SCH (08:58)
[2022-04-05] MEDS: LACTOBACILLUS ACIDOPHILUS CAPSULE PO SCH ×2 (08:58→17:00)
[2022-04-05] MEDS: ASPIRIN 81 MG CHEW TAB PO SCH (08:58)
[2022-04-05] MEDS: DOCUSATE SODIUM 100 MG CAP PO SCH ×2 (08:58→17:00)
[2022-04-05] MEDS: METFORMIN HCL 500 MG TAB CR PO SCH ×2 (08:58→17:01)
[2022-04-05] MEDS: TUMERIC PO SCH ×2 (08:59→17:00)
[2022-04-05] MEDS: LEFLUNOMIDE 10 MG PO SCH (08:59)
[2022-04-05] MEDS: FAMOTIDINE 20 MG/2 ML VIAL IV SCH ×2 (08:59→17:00)
[2022-04-05] MEDS ORDERED: TAMSULOSIN HCL 0.4 MG CAP PO SCH (09:00)
[2022-04-05] MEDS ORDERED: LOSARTAN POTASSIUM 25 MG TAB PO SCH (09:00)
[2022-04-05] MEDS: LINACLOTIDE 145 MCG CAPSULE PO SCH (09:12)
[2022-04-05 11:26] LABS: CREATINE KINASE 39 IU/L (29-168)
[2022-04-05] MEDS: GABAPENTIN 300 MG CAP PO SCH ×3 (13:57→21:16)
[2022-04-05] MEDS ORDERED: POTASSIUM CHLORIDE 20 MEQ TAB CR PO ONE ×2 (17:45→21:00)
[2022-04-05] MEDS: MONTELUKAST SODIUM 10 MG TAB PO SCH (21:16)
[2022-04-05] MEDS: CRESTOR 10MG PO SCH (21:16)
[2022-04-06] VITALS (8 sets, daily range): BP systolic 89–126; BP diastolic 56–84
[2022-04-06 06:59] LABS: ANION GAP 11.8 mmol/L (8-16); CALCIUM 8.4 mg/dL (8.4-10.2); CREATININE, SERUM 0.69 mg/dL (0.57-1.11); POTASSIUM 3.8 mmol/L (3.5-5.1)
[2022-04-06] MEDS: LEFLUNOMIDE 10 MG PO SCH (09:00)
[2022-04-06] MEDS: TUMERIC PO SCH ×2 (09:00→17:00)
[2022-04-06] MEDS ORDERED: REGADENOSON 0.4 MG/5 ML SYR IV ONE (10:00)
[2022-04-06] MEDS: FOLIC ACID 1 MG TAB PO SCH (10:48)
[2022-04-06] MEDS: LINACLOTIDE 145 MCG CAPSULE PO SCH (10:48)
[2022-04-06] MEDS: LACTOBACILLUS ACIDOPHILUS CAPSULE PO SCH ×2 (10:48→17:39)
[2022-04-06] MEDS: GABAPENTIN 300 MG CAP PO SCH ×4 (10:48→20:54)
[2022-04-06] MEDS: FAMOTIDINE 20 MG/2 ML VIAL IV SCH ×2 (10:48→17:38)
[2022-04-06] MEDS: METFORMIN HCL 500 MG TAB CR PO SCH ×2 (10:48→17:39)
[2022-04-06] MEDS: LORATADINE 10 MG TAB PO SCH (10:48)
[2022-04-06] MEDS: DOCUSATE SODIUM 100 MG CAP PO SCH ×2 (10:48→17:39)
[2022-04-06] MEDS: ASPIRIN 81 MG CHEW TAB PO SCH (10:49)
[2022-04-06] MEDS: ONDANSETRON HCL INJ 2MG/ML 2ML 2 MG/ML VIAL IV PRN ×2 (11:04→15:55)
[2022-04-06 14:20] LABS: CLARITY,URINE CLEAR (CLEAR); COLOR,URINE YELLOW (YELLOW); KETONES,URINE NEGATIVE (NEGATIVE); LEUKOCYTE ESTERASE ,URINE TRACE (NEGATIVE); NITRITE,URINE NEGATIVE (NEGATIVE); PROTEIN,URINE DIPSTICK NEGATIVE (NEGATIVE); URINE UROBILINOGEN 0.2 mg/dL (0.2 - 1)
[2022-04-06 14:31] LABS: RBC,URINE 0-5 /HPF (0-5)
[2022-04-06 14:32] LABS: BACTERIA,URINE MODERATE /HPF; RENAL EPITHELIAL CELLS,URINE RARE
[2022-04-06] MEDS: MONTELUKAST SODIUM 10 MG TAB PO SCH (20:54)
[2022-04-06] MEDS ORDERED: CRESTOR 10MG PO SCH (21:00)
[2022-04-07 00:38] VITALS: BP 97/68
[2022-04-07 05:45] VITALS: BP 94/65
[2022-04-07 07:08] LABS: BASOPHILS # (AUTO) 0.1 (0.0-0.1); BASOPHILS % 0.7 % (0.0-1.0); EOSINOPHILS # (AUTO) 0.2 (0.0-0.4); EOSINOPHILS % 3.3 % (0.0-6.0); HEMATOCRIT 39.9 % (34.2-44.1); HEMOGLOBIN 12.4 g/dL (12.0-16.0); LYMPHOCYTES # (AUTO) 2.2 (1.0-3.2); LYMPHOCYTES % 31.6 % (18.0-39.1); MEAN CORPUSCULAR HEMOGLOBIN 32.5 pg (28-32); MEAN CORPUSCULAR HGB CONC 31.1 g/dL (31-35); MEAN CORPUSCULAR VOLUME 104.7 fL (81-99); MONOCYTES # (AUTO) 0.7 (0.2-0.8); MONOCYTES % 9.4 % (4.4-11.3); NEUTROPHILS # (AUTO) 3.8 (2.1-6.9); NEUTROPHILS % 54.3 % (38.7-80.0); PLATELET COUNT 252 x10e3/uL (140-360); RED BLOOD COUNT 3.81 x10e6/uL (3.6-5.1); RED CELL DISTRIBUTION WIDTH 13.8 % (11.7-14.4)
[2022-04-07 07:40] LABS: ANION GAP 13.9 mmol/L (8-16); CALCIUM 8.3 mg/dL (8.4-10.2); CREATININE, SERUM 0.74 mg/dL (0.57-1.11); MAGNESIUM 1.8 MG/DL (1.3-2.1); PHOSPHORUS 3.7 MG/DL (2.3-4.7); POTASSIUM 3.9 mmol/L (3.5-5.1)
[2022-04-07 08:28] VITALS: BP 116/82
[2022-04-07] MEDS: METFORMIN HCL 500 MG TAB CR PO SCH (08:49)
[2022-04-07] MEDS: LORATADINE 10 MG TAB PO SCH (08:49)
[2022-04-07] MEDS: FAMOTIDINE 20 MG/2 ML VIAL IV SCH (08:50)
[2022-04-07] MEDS: FOLIC ACID 1 MG TAB PO SCH (08:50)
[2022-04-07] MEDS: LACTOBACILLUS ACIDOPHILUS CAPSULE PO SCH (08:50)
[2022-04-07] MEDS: LINACLOTIDE 145 MCG CAPSULE PO SCH (08:50)
[2022-04-07] MEDS: DOCUSATE SODIUM 100 MG CAP PO SCH (08:50)
[2022-04-07] MEDS: ASPIRIN 81 MG CHEW TAB PO SCH (08:50)
[2022-04-07] MEDS: GABAPENTIN 300 MG CAP PO SCH ×2 (08:50→13:12)
[2022-04-07] MEDS: LEFLUNOMIDE 10 MG PO SCH (08:51)
[2022-04-07] MEDS: TUMERIC PO SCH (08:51)
[2022-04-07 09:00] VITALS: BP 116/82
[2022-04-07] MEDS ORDERED: Docusate Sodium PO (12:14)
[2022-04-07 12:50] VITALS: BP 109/75
[2022-04-07] MEDS ORDERED: ONDANSETRON HCL 4 MG ORAL DISINTEGRATING TAB PO PRN (13:15)
[2022-04-07] MEDS ORDERED: FAMOTIDINE 20 MG TAB PO SCH (16:30)
[2022-04-09] MEDS ORDERED: CHOLECALCIFEROL 20000 UNIT PO SCH (09:00)
== END 2022-04-07 13:37 | disposition home or self-care (01) | DRG 313 ==
LOC: FSED 08:20 → UNDOADMOB 09:36 → ERHOLD 09:36 → FSED 10:08 → ERHOLD 12:10 → MED/SURG2 12:17 → OBSVTOIN 04-06 12:09
PROVIDERS: ADMIT Internal Medicine; ATTEND Internal Medicine
DX: R07.9 Chest pain, unspecified (principal); Q61.3 Polycystic kidney, unspecified; E11.22 Type 2 diabetes mellitus with diabetic chronic kidney disease; N18.9 Chronic kidney disease, unspecified; Z79.899 Other long term (current) drug therapy; M79.7 Fibromyalgia; K58.9 Irritable bowel syndrome, unspecified; R00.1 Bradycardia, unspecified; M94.1 Relapsing polychondritis; J45.909 Unspecified asthma, uncomplicated; E78.5 Hyperlipidemia, unspecified; Z20.822 Contact with and (suspected) exposure to COVID-19; R53.1 Weakness; Z88.1 Allergy status to other antibiotic agents; Z88.3 Allergy status to other anti-infective agents; Z91.012 Allergy to eggs; Z88.5 Allergy status to narcotic agent; Z88.0 Allergy status to penicillin; Z91.014 Allergy to mammalian meats; Z91.013 Allergy to seafood; Z88.8 Allergy status to other drugs, medicaments and biological substances; Z91.018 Allergy to other foods; Z99.89 Dependence on other enabling machines and devices
CPT/HCPCS: 36415; 71045; 78452; 80048; 80053; 80061; 80076; 81001; 82550; 82553; 82948; 83036; 83735; 84100; 84443; 84484; 85025; 93005; 93017; 93306; 93880; 94799; 96374; 96375; 99284; A9502; G0378; J2270; J2405

== ENCOUNTER 2022-12-05 20:59 | Emergency (ER) | payer MEDICARE, OTHER ==
[~2022-12-05] VITALS: Ht 162.6 cm; Wt 75.7 kg
[~2022-12-05 20:59] MED LIST changes: +Docusate Sodium PO; +FLAX SEED OIL1 EACH
[2022-12-05] MEDS ORDERED: ASPIRIN 325 MG TAB PO ONE (21:45)
[2022-12-05] MEDS ORDERED: ONDANSETRON HCL INJ 2MG/ML 2ML 2 MG/ML VIAL IV STA (21:49)
[2022-12-05] MEDS ORDERED: ONDANSETRON HCL INJ 2MG/ML 2ML 2 MG/ML VIAL ONE (22:06)
[2022-12-05] MEDS ORDERED: SODIUM CHLORIDE 0.9% 1000ML 1,000 ML IV SCH (22:15)
[2022-12-05] MEDS ORDERED: ASPIRIN 325 MG TAB ONE (22:19)
[2022-12-05] MEDS ORDERED: SODIUM CHLORIDE 0.9% 1000ML 1,000 ML ONE (22:50)
[2022-12-05] MEDS ORDERED: ONDANSETRON ODT4 MG PO (23:20)
[2022-12-05 23:25] VITALS: BP 150/89
== END 2022-12-05 23:25 | disposition home or self-care (01) ==
LOC: FSED 21:18
DX: R07.89 Other chest pain (principal); R11.2 Nausea with vomiting, unspecified; R19.7 Diarrhea, unspecified; M62.838 Other muscle spasm; E11.22 Type 2 diabetes mellitus with diabetic chronic kidney disease; I12.9 Hypertensive chronic kidney disease with stage 1 through stage 4 chronic kidney disease, or unspecified chronic kidney disease; N18.9 Chronic kidney disease, unspecified; J45.909 Unspecified asthma, uncomplicated; Z88.6 Allergy status to analgesic agent; Z88.1 Allergy status to other antibiotic agents; Z91.041 Radiographic dye allergy status; Z91.012 Allergy to eggs; Z88.0 Allergy status to penicillin; Z88.7 Allergy status to serum and vaccine; Z88.8 Allergy status to other drugs, medicaments and biological substances; Z91.018 Allergy to other foods; Z91.013 Allergy to seafood; Z79.82 Long term (current) use of aspirin; Z79.84 Long term (current) use of oral hypoglycemic drugs; Z79.899 Other long term (current) drug therapy
CPT/HCPCS: 71045; 80048; 80076; 82553; 83880; 84484; 85025; 93005; 96374; 99283; J2405; J7030

== ENCOUNTER 2022-12-22 16:09 | Emergency (ER) | payer MEDICARE, OTHER ==
[~2022-12-22] VITALS: Ht 165.1 cm; Wt 74.6 kg
[~2022-12-22 16:09] MED LIST changes: +ONDANSETRON ODT4 MG PO
[2022-12-22] MEDS ORDERED: ONDANSETRON HCL INJ 2MG/ML 2ML 2 MG/ML VIAL ONE (16:55)
[2022-12-22] MEDS ORDERED: SODIUM CHLORIDE 0.9% 1000ML 1,000 ML ONE (16:55)
[2022-12-22] MEDS ORDERED: Morphine 4mg INJECTION 4 MG/ML INJ IV ONE (17:30)
[2022-12-22] MEDS ORDERED: ONDANSETRON HCL INJ 2MG/ML 2ML 2 MG/ML VIAL IV STA (17:40)
[2022-12-22] MEDS ORDERED: SODIUM CHLORIDE 0.9% 1000ML 1,000 ML IV ONE (17:45)
[2022-12-22] MEDS ORDERED: ONDANSETRON ODT4 MG PO (19:12)
[2022-12-22 19:31] VITALS: BP 122/78
== END 2022-12-22 19:32 | disposition home or self-care (01) ==
LOC: FSED 16:25
DX: R10.30 Lower abdominal pain, unspecified (principal); M54.50 Low back pain, unspecified; I12.9 Hypertensive chronic kidney disease with stage 1 through stage 4 chronic kidney disease, or unspecified chronic kidney disease; E11.22 Type 2 diabetes mellitus with diabetic chronic kidney disease; N18.9 Chronic kidney disease, unspecified; E78.5 Hyperlipidemia, unspecified; K21.9 Gastro-esophageal reflux disease without esophagitis; M79.7 Fibromyalgia
CPT/HCPCS: 74176; 80048; 80076; 81003; 85025; 96374; 96375; 99284; J2270; J2405; J7030

== ENCOUNTER 2023-11-10 13:35 | Emergency (ER) | payer MEDICARE, OTHER ==
[~2023-11-10] VITALS: Ht 165.1 cm; Wt 73.2 kg
[~2023-11-10 13:35] MED LIST changes: +KETOROLAC TROME10 MG PO
[2023-11-10] MEDS ORDERED: ACETAMINOPHEN 325 MG TAB PO ONE (14:00)
[2023-11-10] MEDS ORDERED: IBUPROFEN 600 MG TAB ONE (14:08)
[2023-11-10] MEDS ORDERED: ACETAMINOPHEN 325 MG TAB ONE (14:08)
[2023-11-10] MEDS ORDERED: IBUPROFEN 600 MG TAB PO ONE (14:15)
[2023-11-10] MEDS ORDERED: IBUPROFEN200 MG PO (15:07)
[2023-11-10] MEDS ORDERED: TYLENOL325 MG PO (15:07)
[2023-11-10 15:35] VITALS: O2SAT 99
== END 2023-11-10 15:35 | disposition home or self-care (01) ==
LOC: FSED 13:43
DX: M79.672 Pain in left foot (principal); S90.32XA Contusion of left foot, initial encounter; W20.8XXA Other cause of strike by thrown, projected or falling object, initial encounter; Y92.89 Other specified places as the place of occurrence of the external cause; I10 Essential (primary) hypertension; E11.9 Type 2 diabetes mellitus without complications; E78.5 Hyperlipidemia, unspecified; K21.9 Gastro-esophageal reflux disease without esophagitis; M79.7 Fibromyalgia
CPT/HCPCS: 99283

== ENCOUNTER 2024-11-10 18:41 | Emergency (ER) | payer MEDICARE ==
[~2024-11-10 18:41] MED LIST changes: +ARNUITY ELLIP200 MCG IN; +CETIRIZINE HCL10 MG PO; +CYCLOBENZAPRINE10 MG PO; +IBUPROFEN200 MG PO; +MYRBETRIQ25 MG PO; +NEURONTIN100 MG PO; +OMEPRAZOLE40 MG PO; +TRULICITY0.75 MG/0. SQ; +TYLENOL325 MG PO
[2024-11-10] MEDS ORDERED: CYCLOBENZAPRINE5 MG PO (22:16)
== END 2024-11-10 19:11 | disposition left against medical advice (07) ==
LOC: FSED 18:46
DX: M25.551 Pain in right hip (principal)

== ENCOUNTER 2024-11-10 19:33 | Emergency (ER) | payer MEDICARE ==
[~2024-11-10] VITALS: Ht 165.1 cm; Wt 73.9 kg
[2024-11-10 19:47] VITALS: TEMP 98.1
[2024-11-10] MEDS ORDERED: ACETAMINOPHEN 325 MG TAB ONE (21:26)
[2024-11-10] MEDS: ACETAMINOPHEN 325 MG TAB PO ONE (21:32)
[2024-11-10] MEDS ORDERED: CYCLOBENZAPRINE5 MG PO (22:16)
[2024-11-10 22:40] VITALS: PULSE 61; RESP 20; O2SAT 97
== END 2024-11-10 22:40 | disposition home or self-care (01) ==
LOC: ER 19:42
DX: S70.01XA Contusion of right hip, initial encounter (principal); M25.551 Pain in right hip; W18.39XA Other fall on same level, initial encounter; Y93.01 Activity, walking, marching and hiking; Y92.89 Other specified places as the place of occurrence of the external cause; I12.9 Hypertensive chronic kidney disease with stage 1 through stage 4 chronic kidney disease, or unspecified chronic kidney disease; E11.22 Type 2 diabetes mellitus with diabetic chronic kidney disease; N18.9 Chronic kidney disease, unspecified; E78.5 Hyperlipidemia, unspecified; K21.9 Gastro-esophageal reflux disease without esophagitis; J45.909 Unspecified asthma, uncomplicated; L40.50 Arthropathic psoriasis, unspecified
CPT/HCPCS: 99283

== ENCOUNTER 2024-11-17 12:05 | Emergency (ER) | payer MEDICARE ==
[~2024-11-17 12:05] MED LIST changes: +CYCLOBENZAPRINE5 MG PO
[2024-11-17 12:15] VITALS: PULSE 101; RESP 18; TEMP 98.7
[2024-11-17] MEDS: ONDANSETRON HCL 4 MG ORAL DISINTEGRATING TAB PO ONE (13:05)
[2024-11-17] MEDS ORDERED: VENTOLIN HFA18 GM INH (13:23)
[2024-11-17] MEDS ORDERED: ONDANSETRON ODT4 MG PO (13:24)
[2024-11-17] MEDS ORDERED: IBUPROFEN600 MG PO (13:25)
[2024-11-17 13:32] VITALS: BP 109/74; PULSE 92; RESP 16; TEMP 98.6; O2SAT 98
== END 2024-11-17 13:30 | disposition home or self-care (01) ==
LOC: FSED 12:14
DX: R05.9 Cough, unspecified (principal); R11.2 Nausea with vomiting, unspecified; J10.1 Influenza due to other identified influenza virus with other respiratory manifestations; K57.90 Diverticulosis of intestine, part unspecified, without perforation or abscess without bleeding; Q61.3 Polycystic kidney, unspecified; R19.7 Diarrhea, unspecified; I12.9 Hypertensive chronic kidney disease with stage 1 through stage 4 chronic kidney disease, or unspecified chronic kidney disease; E11.22 Type 2 diabetes mellitus with diabetic chronic kidney disease; N18.9 Chronic kidney disease, unspecified; E78.5 Hyperlipidemia, unspecified; K21.9 Gastro-esophageal reflux disease without esophagitis; M79.7 Fibromyalgia
CPT/HCPCS: 71046; 74176; 99284; Q0162

== ENCOUNTER 2025-04-30 13:38 | Emergency (ER) | payer MEDICARE ==
[~2025-04-30] VITALS: Ht 165.1 cm; Wt 78.5 kg
[~2025-04-30 13:38] MED LIST changes: +IBUPROFEN600 MG PO
[2025-04-30 14:08] VITALS: TEMP 98.4
[2025-04-30 14:48] LABS: BASOPHILS % 0.6 % (0.0-1.0); EOSINOPHILS % 4.4 % (0.0-6.0); LYMPHOCYTES % 39.1 % (18.0-39.1); MONOCYTES % 13.9 % (4.4-11.3); NEUTROPHILS % 41.0 % (38.7-80.0); RED CELL DISTRIBUTION WIDTH 13.9 % (11.7-14.4)
[2025-04-30 15:00] LABS: INR 0.82
[2025-04-30 15:12] LABS: EST GLOMERULAR FILTRATION RATE 74.0 ML/MIN (>=60)
[2025-04-30 15:30] VITALS: PULSE 67; RESP 20; O2SAT 95
[2025-04-30] MEDS: ONDANSETRON HCL INJ 2MG/ML 2ML 2 MG/ML VIAL IV STA (15:33)
[2025-04-30] MEDS: SODIUM CHLORIDE 0.9% 1000ML 1,000 ML IV STA (15:33)
[2025-04-30] MEDS ORDERED: LEVSIN-SL0.125 MG SL (17:00)
[2025-04-30] MEDS: DONNATAL/LIDOCAINE/MAALOX 30 ML SUSP PO ONE (17:28)
[2025-04-30] MEDS: DICYCLOMINE HCL 20 MG/2 ML VIAL IM ONE (17:28)
== END 2025-04-30 17:43 | disposition home or self-care (01) ==
LOC: ER 14:30
DX: R10.13 Epigastric pain (principal); K29.70 Gastritis, unspecified, without bleeding; K59.00 Constipation, unspecified; R11.0 Nausea; K57.90 Diverticulosis of intestine, part unspecified, without perforation or abscess without bleeding; N28.1 Cyst of kidney, acquired; R94.31 Abnormal electrocardiogram [ECG] [EKG]
CPT/HCPCS: 36415; 71045; 74176; 80053; 82550; 83690; 83735; 83880; 84484; 85025; 85610; 85730; 93005; 99284; J0500; J2405; J2470; J7030